=== PATIENT | male | born 1965 | race Caucasian/White ===

== ENCOUNTER 2020-09-08 08:36 | Outpatient (REF) | payer MEDICARE, SELFPAY ==
--- NOTE | 2020-09-08 | US_ITS ---
EXAMINATION: US RETROPERITONEAL COMPLETE (RENAL) CLINICAL INFORMATION: Neurogenic bladder. COMPARISON: CTA abdomen and pelvis 11/12/2019. Renal ultrasound 08/19/2018 and 08/20/2017. TECHNIQUE: Real-time imaging of the kidneys and bladder. FINDINGS: RIGHT KIDNEY: 13.4 x 4.7 x 6.5 cm (SAG x AP x TRV). The kidney is normal in size, contour, and echogenicity. Renal cortical thickness is normal. No calculi or focal parenchymal lesions. No hydronephrosis. LEFT KIDNEY: 13.6 x 5.3 x 6.0 cm (SAG x AP x TRV). The kidney is normal in size, contour, and echogenicity. Renal cortical thickness is normal. No calculi or focal parenchymal lesions. No hydronephrosis. BLADDER: Well distended. The bladder wall may be slightly trabeculated. No stone or mass is seen.. Bilateral ureteral jets are demonstrated. Prevoid bladder volume is 551 mL. Post void bladder volume was not obtained. ADDITIONAL FINDINGS: The prostate gland is normal in size. The prostate gland measures 3.7 x 3.1 x 3.1 cm, volume 18 mL. US/US retroperitoneal comp IMPRESSION: Normal renal ultrasound. Slightly trabeculated bladder wall. Postvoid bladder residual not obtained.
== END 2020-09-08 08:37 | disposition home or self-care (01) ==
LOC: HO.HMGCX 08:36
PROVIDERS: PCP Internal Medicine; Visit Provider Urology
DX: N31.9 Neuromuscular dysfunction of bladder, unspecified (principal)
CPT/HCPCS: 76770

== ENCOUNTER → 2020-12-28 13:12 | Outpatient (BNVA) | payer MEDICARE, SELFPAY | PROVIDERS: Visit Provider Urology | DX: Z13.89 Encounter for screening for other disorder (principal) | CPT/HCPCS: Q3014 ==

== ENCOUNTER 2021-08-20 23:57 | Emergency (ER) | payer MEDICARE, SELFPAY ==
--- NOTE | ~2021-08-20 | XR_ITS ---
EXAMINATION: XR SHOULDER, RIGHT CLINICAL INFORMATION: Fall. EtOH. COMPARISON: 03/08/2012 TECHNIQUE: Two views of the right shoulder. XR/XR shoulder RT min 2V FINDINGS/IMPRESSION: * Acute displaced fracture of the mid clavicular diaphysis with 2 shaft-widths inferior displacement of the distal fracture fragment with respect to the proximal fragment. * Plate and screws redemonstrated along the lateral aspect of the proximal humerus. Healed fracture deformity involving the surgical neck of humerus. * No dislocation. * Acromioclavicular joint unremarkable. * Soft tissues unremarkable.
--- NOTE | ~2021-08-20 | CT_ITS ---
EXAMINATION: CT HEAD WITHOUT CONTRAST CT CERVICAL SPINE WITHOUT CONTRAST CLINICAL INFORMATION: Fall. EtOH. COMPARISON: None. TECHNIQUE: Multidetector CT imaging of the head and cervical spine was performed without the use of intravenous contrast. Multiplanar reformats are reviewed. This CT examination was performed using dose optimization techniques as appropriate, variously including the following: *Automated exposure control *Adjustment of mA and/or kV according to patient size (this includes techniques or standardized protocols for targeted exams where dose is matched to indication/reason for exam; i.e. extremities or head) *Use of iterative reconstruction technique DLP: 1307 mGy-cm. FINDINGS: There is no evidence of acute intracranial hemorrhage or territorial infarction. No abnormal mass effect or midline shift is seen. Poe to white matter differentiation is well preserved. No extra-axial fluid collections are identified. The ventricles are normal in size. 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 No additional small chronic infarct involves the genu of the corpus callosum. Mild background chronic white matter small vessel ischemic changes. Pipeline embolization device within the right cavernous carotid artery extending into the M1 segment with embolization coil mass adjacent. Cavernous carotid calcifications. The osseous structures and soft tissues are normal. The mastoid air cells and visualized portions of the paranasal sinuses are well-aerated. Atlantooccipital alignment is maintained. The vertebral bodies and posterior elements align normally. No acute fracture or subluxation. Vertebral body heights are maintained. Small endplate osteophytes present at C4-C5, C5-C6 and C6-C7. The cervicomedullary junction and spinal cord are grossly unremarkable. The paraspinal soft tissues are unremarkable. The imaged lung apices are clear CT/CT cervical spine wo con IMPRESSION: No acute intracranial pathology. No cervical spine fracture or malalignment.
[2021-08-21 00:20] VITALS: BP 118/79; BP 160/90; PULSE 74; PULSE 75; RESP 17; TEMP 36.6; O2SAT 95; O2SAT 98; BMI 30.8
[2021-08-21 01:48] VITALS: BP 115/78; PULSE 75; RESP 16; TEMP 36.8; O2SAT 94
--- NOTE | 2021-08-21 03:18 | ED_ITS ---
HPI - Alcohol General Chief Complaint: Fall Stated Complaint: r shoulder pain S/P fall Time Seen by Provider: 08/21/21 02:39 Source: patient and EMS Mode of arrival: EMS Limitations: no limitations History of Present Illness HPI narrative: Patient comes to the emergency room complaining alcohol intoxication and a fall. Patient states that he does not remember much. Patient admits to drinking alcohol. Patient complaining of right shoulder pain. Denies headache, no neck pain. Related Data Home Medications Medication Instructions Recorded Confirmed bupropion HCl 150 mg 24 hr tablet, 150 mg PO QAM 12/28/20 extended release dextroamphetamine-amphetamine 30 1 tab PO BID 12/28/20 mg tablet dextroamphetamine-amphetamine ER 1 cap PO QAM 12/28/20 30 mg 24hr capsule,extend release hydrochlorothiazide 25 mg tablet 25 mg PO DAILY 12/28/20 lamotrigine 150 mg tablet 300 mg PO BEDTIME 12/28/20 lorazepam 1 mg tablet 1 mg PO BID PRN 12/28/20 metoprolol tartrate 50 mg tablet 50 mg PO BID 12/28/20 naproxen 500 mg tablet 500 mg PO BID 12/28/20 quetiapine 50 mg tablet 50 mg PO BEDTIME 12/28/20 Previous Rx's Medication Instructions Recorded trimethoprim 100 mg tablet 100 mg PO DAILY 90 Days #90 tab 12/28/20 Allergies Allergy/AdvReac Type Severity Reaction Status Date / Time No Known Allergies Allergy Verified 12/28/20 13:13 lisinopril AdvReac Unknown cough Verified 12/28/20 13:13 Review of Systems Review of Systems: Constitutional : No Weight loss, No Fever, No Chills, No Night Sweats, No Fatigue, No Malaise ENT/Mouth : No Hearing loss, No Ear Pain, No Nasal Congestion, No Sinus Pain, No Hoarseness, No sore throat, No Rhinorrhea, No Swallowing Difficulty Eyes: No Eye Pain, No Swelling, No Redness, No Foreign Body, No Discharge, No Vision Changes Cardiovascular : No Chest Pain, No SOB, No Dyspnea on Exertion, No Orthopnea, No Edema, No Palpitations Respiratory : No Cough, No Sputum, No Wheezing, No Smoke Exposure, No Dyspnea Gastrointestinal : No Nausea, No Vomiting, No Diarrhea, No Constipation, No abdominal Pain, No Hematochezia, No Melena Genitourinary : no irregular bleeding, No Dysuria, No Urinary Frequency, No Hematuria, No Urinary Incontinence, No Urgency, No Flank Pain, No Urinary Flow Changes, No Hesitancy Musculoskeletal : Lining of right shoulder pain, No Myalgias, No Joint Swelling Skin : No Skin Lesions, No rash Neuro : No Weakness, No Numbness, No Paresthesias, No Loss of Consciousness, No Dizziness, No Headache Psych : No Anxiety/Panic, No Depression, No SI/HI/AH/VH, No Social Issues, Heme/Lymph: No Bruising, No Bleeding,No Lymphadenopathy Endocrine : No Polyuria, No Polydipsia, No Temperature Intolerance [facility] Past Medical History Medical History Anxiety Brain aneurysm Dyslipidemia Elevated liver enzymes Epididymitis Essential hypertension GERD (gastroesophageal reflux disease) Intracranial aneurysm MVP (mitral valve prolapse) Neurogenic bladder Retention of urine Surgical History H/O brain surgery History of knee surgery History of vasectomy Social History Social History (Updated 12/28/20 @ 13:16 by Fransisca Ray [facility]) Advance Directives: No Advance Directives Information Provided: No Physical Exam Vital Signs: Vital Signs: Last Vital Signs Temp 97.9 F 08/21/21 04:37 Pulse 75 08/21/21 04:37 Resp 20 08/21/21 04:37 BP 114/79 08/21/21 04:37 Pulse Ox 95 08/21/21 04:37 BMI result Body Mass Index 30.8 Const: Other: Appearance: Alert. Oriented X3. No acute distress. Seems intoxicated, calm, cooperative, answering questions Eyes: Pupils equal, round and reactive to light. ENT: Pharynx normal. Dry oral mucosa Neck: On C-spine precautions. No cervical pain on palpation, no palpable step-offs CVS: Normal heart rate and rhythm. Pulses normal. Normal S1 and S2 Respiratory: No respiratory distress. Breath sounds normal. No Wheezing. No rales Abdomen: Soft and nontender. No rigidity. No distention. Skin: Skin warm and dry. Normal skin color. Normal skin turgor. Extremities: No lower extremity edema. Pain to palpation over the anterior aspect of the right shoulder Neuro: Oriented X 3. No motor deficit. No sensory deficit. Moving all extermities. No slurred speech. Course Course Course Narrative: Patient requested pain medication for his headache. Patient was given Tylenol. Patient became very belligerent. Patient wanted to leave against medical advice. A staff was trying to keep him from leaving. The results of the x-rays returned in the meantime. Patient has an acute displaced fracture of the mid clavicular diaphysis. Stronger pain medication was offered, patient became belligerent and decided to leave against medical advice. Patient stated that he does not want treatment, does not want a sling, pt declined an orthopedics referral. Patient was able to walk steadily. We tried to convince patient to stay, but patient eloped Discharge Plan Discharge Clinical Impression: Alcohol abuse, Clavicle fracture Patient Disposition: Elopement Prescriptions: No Action trimethoprim 100 mg tablet 100 mg PO DAILY 90 Days Qty: 90 RF: 3 Discharge Date/Time: 08/21/21 04:59
[2021-08-21 04:37] VITALS: BP 114/79; PULSE 75; RESP 20; TEMP 36.6; O2SAT 95
--- NOTE | 2021-08-21 04:51 | PC.NURSE ---
at bedside discussing imaging results with pt. pt aware that he has clavicular fracture and is adamantly refusing treatment and telling staff to fuck off. ill go to [facility] pt took off his own C-collar. pt continuing to scream your hospital sucks and is still refusing to stay or cooperate with staff. pt now stating that he will [place] [facility] [place] to get his own pain meds off the street . pt ambulated with steady gait in front of staff and MD. pt still refusing treatment. charge nurse aware.
--- NOTE | 2021-08-21 04:56 | PC.NURSE ---
pt was offered Tylenol for discomfort, pt refused and became verbally aggressive with staff, pt began swearing and yelling stating Fuck you, im going to [facility] , pt also stated im going down to the [place] where i can get some real pain meds
== END 2021-08-21 04:59 | disposition left against medical advice (07) ==
LOC: HO.ED 08-21 03:47
PROVIDERS: Emergency Provider Emergency Medicine
DX: S42.001A Fracture of unspecified part of right clavicle, initial encounter for closed fracture (principal); R51.9 Headache, unspecified; I10 Essential (primary) hypertension; F10.10 Alcohol abuse, uncomplicated; W19.XXXA Unspecified fall, initial encounter; Y93.9 Activity, unspecified; Y92.9 Unspecified place or not applicable; Y99.9 Unspecified external cause status
CPT/HCPCS: 70450; 72125; 73030; 99283; 99284

== ENCOUNTER 2021-12-29 14:52 | Outpatient (REF) | payer MEDICARE, SELFPAY ==
[2021-12-29 17:03] LABS: Prostate Specific Antigen 4.42 ng/mL (<0.05-4.0)
== END 2021-12-29 14:53 | disposition home or self-care (01) ==
LOC: HO.HMGCLDS 14:52
PROVIDERS: Visit Provider Urology
DX: Z12.5 Encounter for screening for malignant neoplasm of prostate (principal); N40.1 Benign prostatic hyperplasia with lower urinary tract symptoms; N13.8 Other obstructive and reflux uropathy
CPT/HCPCS: 36415; 84153

== ENCOUNTER → 2022-03-08 12:58 | Outpatient (BNVA) | payer MEDICARE, SELFPAY | PROVIDERS: PCP Internal Medicine; Visit Provider Urology | DX: N31.9 Neuromuscular dysfunction of bladder, unspecified (principal) | CPT/HCPCS: 51798; 99212 ==

== ENCOUNTER → 2022-09-08 12:59 | Outpatient (BNVA) | payer MEDICARE, SELFPAY | PROVIDERS: PCP Internal Medicine; Visit Provider Urology | DX: N31.9 Neuromuscular dysfunction of bladder, unspecified (principal) | CPT/HCPCS: Q3014 ==

== ENCOUNTER 2023-03-06 23:04 | Emergency (ER) | payer MEDICARE, SELFPAY ==
--- NOTE | ~2023-03-06 | CT_ITS ---
EXAMINATION: CT ABDOMEN AND PELVIS WITHOUT CONTRAST CLINICAL INFORMATION: Right flank/rib pain COMPARISON: None available. TECHNIQUE: Multidetector volumetric imaging was performed from the superior aspect of the liver through the pubic symphysis. Sagittal and coronal reformatted images were obtained on the technologist's workstation. This CT examination was performed using dose optimization techniques as appropriate, variously including the following: *Automated exposure control *Adjustment of mA and/or kV according to patient size (this includes techniques or standardized protocols for targeted exams where dose is matched to indication/reason for exam; i.e. extremities or head) *Use of iterative reconstruction technique DLP: 611 mGy-cm FINDINGS: LUNG BASES: The lung bases are unremarkable. The heart size is normal. LIVER, GALLBLADDER, AND BILIARY TREE: The liver is normal in size, shape, and scattered hypoattenuation. No focal hepatic lesion or biliary ductal dilatation is present. The gallbladder has been surgically removed. PANCREAS: Unremarkable. SPLEEN: The spleen is normal size with punctate calcifications. ADRENAL GLANDS: Unremarkable. KIDNEYS AND URETERS: The kidneys are normal in size, shape, and attenuation. There are punctate nonobstructive calculi without caliectasis or hydronephrosis. A 5 mm lower pole left kidney and 2 mm nonobstructive radiopaque calculi lower pole right kidney. No perinephric stranding seen. BLADDER: The bladder is irregular nondistended with mild anterior and superior bladder wall thickening as much as 6 mm along the superior border. This is best visualized on sagittal image 55/6 GASTROINTESTINAL TRACT: There is scattered stool and gas seen throughout the colon without any significant distention. The small bowel loops are normal caliber. Appendix is normal caliber. The stomach is prominent with recently ingested food. ABDOMINAL WALL: No significant hernia is appreciated. LYMPH NODES: There are numerous retroperitoneal lymph nodes largest left para-aortic lymph node measures 1.3 cm on axial image 42/3. . VASCULAR: Mild aneurysmal dilatation of distal abdominal aorta is seen measuring 2.0 cm in AP and 2.8 cm wide on axial slice 50/3. PELVIC VISCERA: Unremarkable. OSSEOUS STRUCTURES: There is Schmorl's node superior endplate L1 vertebra. No aggressive lytic or sclerotic process seen.. CT/CT abdomen pelvis wo IV con IMPRESSION: Punctate bilateral renal calculi, nonobstructive. Irregular bladder shape with mild anterior and superior bladder wall thickening likely neurogenic bladder. Mild constipation with most of stool in the right colon. However the appendix is normal caliber. Fleischner guidelines were followed.
[2023-03-06 23:09] VITALS: BP 125/90; BP 154/92; PULSE 85; PULSE 91; RESP 18; TEMP 36.8; O2SAT 95; O2SAT 96; BMI 28.7
[2023-03-07 00:21] LABS: MANUAL DIFF FLAG NO
[2023-03-07 00:27] LABS: Basophils Absolute Auto 0.1 X10*3/uL (0.0-0.2); Basophils Percent Auto 0.6 % (0-2); Eosinophils Absolute Auto 0.2 X10*3/uL (0.0-0.4); Eosinophils Percent Auto 2.3 % (0-4); Hematocrit 40.3 % (42.0-52.0); Hemoglobin 13.6 g/dl (14.0-18.0); Imm Gran Abs Auto 0.02 X10*3/uL (0.00-0.03); Imm Gran Pct Auto 0.3 % (0.0-0.4); Lymphocytes Absolute Auto 3.3 X10*3/uL (1.2-4.9); Lymphocytes Percent Auto 40.8 % (20-40); Mean Corpuscular HGB Conc 33.7 g/dl (31.0-36.0); Mean Corpuscular Hemoglobin 31.8 pg (27.0-33.0); Mean Corpuscular Volume 94.2 fL (80.0-98.0); Mean Platelet Volume 10.1 fL (9.4-12.4); Monocytes Absolute Auto 0.6 X10*3/uL (0.1-1.2); Monocytes Percent Auto 7.9 % (2-11); Neutrophils Absolute Auto 3.9 x10*3/uL (2.0-8.3); Neutrophils Percent Auto 48.1 % (45-73); Platelet Count 145 X10*3/uL (160-400); Red Blood Count 4.28 X10*6/uL (4.60-5.80); Red Cell Distribution Width 12.9 % (11.0-16.0)
[2023-03-07 00:34] LABS: Anion Gap 18 (12-20); Blood Urea Nitrogen 15 mg/dL (9-16); Calcium 10.1 mg/dL (8.4-10.2); Carbon Dioxide 24 mmol/L (22-29); Chloride 105 mmol/L (96-108); Creatinine Clr Calc Pharmacy 92.6; Estimated Glomerular Filt Rate > 60; Glucose Random 98 mg/dL (60-115); Potassium 3.8 mmol/L (3.3-5.1); Sodium 143 mmol/L (135-145)
--- OUTSIDE RECORDS SUMMARY | 2023-03-07 01:01 | XMS_ITS | Continuity of Care Document ---
Author Name Unknown Organization [facility] ter Address [address] [place] [id number] Care Team Providers Care Chemist Biological Name Role Phone Salas Peralta MD Primary Care Physician [place] [facility] [place]): 08/05/21 - 08/05/[address] [address]- Discharge Disposition: A-D/C Walkout Attending Physician: Not on Staff, Attending MD Admitting Physician: Not on Staff, Admitting MD Referring Physician: Not on Staff, Referring MD Allergies, Adverse Reactions, Alerts Substance Reaction Severity Status lisinopril Active Medications Adderall 30 mg oral tablet 1 tablet = 30 mg, By Mouth, 2 times a day, 0 Refills, Maintenance, 04/30/17 5:23:01, Tablet Start Date: 04/30/17 Status: Ordered Aspirin 0 Refills, Maintenance Start Date: 05/26/11 Status: Ordered Ativan 1 mg oral tablet 1 tablet = 1 mg, By Mouth, 2 times a day, PRN as needed for anxiety, 0 Refills, Maintenance, 04/30/17 5:23:30, Tablet Start Date: 04/30/17 Status: Ordered hydrochlorothiazide 25 mg oral tablet 25 mg, 1, tablet, By Mouth, Daily, # 90 tablet, Refills 0, Maintenance, 10/01/20 6:47:00 EST, Partial fill upon patient request if the prescription is for a schedule II opioid drug. Start Date: 10/01/20 Status: Ordered lamotrigine 200 mg oral tablet 1 tablet = 200 mg, By Mouth, 2 times a day, # 180 tablet, 0 Refills, Maintenance, 04/30/17 5:22:50,Tablet Start Date: 04/30/17 Status: Ordered losartan 25 mg oral tablet 25 mg, 1, tablet, By Mouth, Daily, # 30 tablet, Refills 0, Maintenance, 10/01/20 6:47:00 EST, Partial fill upon patient request if the prescription is for a schedule II opioid drug. Start Date: 10/01/20 Status: Ordered metoprolol 50 mg oral tablet 50 mg, 1, tablet, By Mouth, 2 times a day, # 180 tablet, Refills 0, Maintenance, 10/01/20 6:46:00 EST, Partial fill upon patient request if the prescription is for a schedule II opioid drug. Start Date: 10/01/20 Status: Ordered Independence-3 oral capsule 0 Refills, Maintenance, 10/01/20 6:52:00 EST, Partial fill upon patient request if the prescriptionis for a schedule II opioid drug. Start Date: 10/01/20 Status: Ordered Omeprazole By Mouth, Daily, 0 Refills, Maintenance, 10/01/20 6:52:00 EST, Partial fill upon patient request ifthe prescription is for a schedule II opioid drug. Start Date: 10/01/20 Status: Ordered QUEtiapine 100 mg oral tablet 100 mg, 1, tablet, By Mouth, 3 times a day, # 270 tablet, Refills 0, Maintenance, 04/30/17 5:23:48 Start Date: 04/30/17 Status: Ordered Problem List Condition Effective Dates Status Health Status Inform ant Obese class I(Confirmed) Active Results Radiology Reports * Exam Date Time Procedure Performing Provider Status 08/05/21 2:39 PM Chest 2 Views Frontal and Lat Matilde Hunter; Auth (Verified) Notes: (Chest 2 Views Frontal and Lat) Reason For Exam: Chest Pain;Other: RESULT: Chest 2 Views Frontal and Lat Chest 2 Views Frontal and Lat INDICATION/CLINICAL QUESTION: Dizziness. Lightheadedness. Shortness of breath. Malaise. TECHNIQUE: Frontal and lateral views of the chest. COMPARISON: None.. FINDINGS: LINES AND TUBES: None. LUNGS AND PLEURA: RIGHT CHEST: The right lung is clear and there is no right effusion. LEFT CHEST: The left lung is clear and there is no left effusion. HEART, MEDIASTINUM AND DENY: The heart is of normal size. The mediastinum and deny are normal. BONES AND SOFT TISSUES: No acute bony abnormality. IMPRESSION: 1. No active disease in chest. WSN: [id number] Ordering Physician: Светлана Collazo Dictated By: Dejon Helms MD Dictated Date/Time: 08/05/21 2:48 pm Reviewed By: Dejon Helms MD Signed By: Dejon Helms MD Signed Date/Time: 08/05/21 2:48 pm Transcribed By: TINO Transcribed Date/Time: 08/05/21 2:47 pm Vital Signs Most recent to oldest [Reference Range]: 1 Height 178 cm (08/05/21 12:42 PM) Weight 100 kg (08/05/21 12:42 PM) Oxygen Saturation [94-100 %] 97 % (08/05/21 12:42 PM) Pulse Rate [55-90 bpm] 100 bpm *H* (08/05/21 12:42 PM) Body Mass Index [18.5-24.99] 31.56 *>HHI* (08/05/21 12:42 PM) Blood Pressure [90-138/55-84 mm Hg] 148/ 96mm Hg *H* (08/05/21 12:42 PM) Respiratory Rate [16-30 br/min] 20 br/mi n (08/05/21 12:42 PM) Temperature [96.8-100.4 DegF] 99.9 DegF (08/05/21 12:42 PM) Mode of Delivery (Oxygen) Room air (08/05/21 12:42 PM) Blood pressure sites Arm, left (08/05/21 12:42 PM) Temperature Route Oral (08/05/21 12:42 PM) Dry Weight 100 kg (08/05/21 12:42 PM)
--- OUTSIDE RECORDS SUMMARY | 2023-03-07 01:01 | XMS_ITS | Continuity of Care Document ---
Author Name Unknown Organization [facility] ter Address [address] [place] [id number] Care Team Providers Care Oil Inspector Name Role Phone Salas Peralta MD Primary Care Physician [place] [facility] [place] 09/13/[address] [id number] Encounter Diagnosis Right shoulder pain(Final) - 09/11/21 Discharge Disposition: A-D/C AMA Attending Physician: Silvia Kimble MD Admitting Physician: Charlie Salazar MD Referring Physician: Not on Staff, Referring MD Allergies, Adverse Reactions, Alerts Substance Reaction Severity Status lisinopril Active Medications Adderall 30 mg oral tablet 1 tablet = 30 mg, By Mouth, 2 times a day, 0 Refills, Maintenance, 04/30/17 5:23:01, Tablet Start Date: 04/30/17 Status: Ordered Aspirin = 325 mg, By Mouth, Daily, 0 Refills, Maintenance, 05/26/11 12:03:58 EDT Start Date: 05/26/11 Status: Ordered Ativan 1 mg oral tablet 1 tablet = 1 mg, By Mouth, 2 times a day, PRN as needed for anxiety, 0 Refills, Maintenance, 04/30/17 5:23:30, Tablet Start Date: 04/30/17 Status: Ordered buPROPion 150 mg/24 hours (XL) oral tablet, extended release 1 tablet = 150 mg, By Mouth, Daily, # 30 tablet, 0 Refills, Maintenance, 09/11/21 16:43:00 EST, ER Tablet, Partial fill upon patient request if the prescription is for a schedule II opioid drug. Start Date: 09/11/21 Status: Ordered hydrochlorothiazide 25 mg oral tablet 25 mg, 1, tablet, By Mouth, Daily, # 90 tablet, Refills 0, Maintenance, 10/01/20 6:47:00 EST, Partial fill upon patient request if the prescription is for a schedule II opioid drug. Start Date: 10/01/20 Status: Ordered lamotrigine 150 mg oral tablet 2 tablet = 300 mg, By Mouth, Daily at bedtime, # 180 tablet, 0 Refills, Maintenance, 09/11/21 16:42:00 EST, Tablet, Partial fill upon patient request if the prescription is for a schedule II opioid drug. Start Date: 09/11/21 Status: Ordered LORazepam 1 mg oral tablet 1 tablet = 1 mg, By Mouth, 2 times a day, PRN as needed for anxiety, 0 Refills, Maintenance, 09/11/21 16:43:00 EST, Tablet, Partial fill upon patient request if the prescription is for a schedule II opioid drug. Start Date: 09/11/21 Status: Ordered losartan 25 mg oral tablet [...] metoprolol 50 mg oral tablet 50 mg, Tablet, By Mouth, 09/12/21 21:00:00 EST Start Date: 09/12/21 Stop Date: 09/12/21 Status: Completed [place]-3 oral capsule 0 Refills, Maintenance, 10/01/20 6:52:00 EST, Partial fill upon patient request if the prescriptionis for a schedule II opioid drug. Start Date: 10/01/20 Status: Ordered Omeprazole By Mouth, Daily, 0 Refills, Maintenance, 10/01/20 6:52:00 EST, Partial fill upon patient request ifthe prescription is for a schedule II opioid drug. Start Date: 10/01/20 Status: Ordered oxyCODONE 5 mg oral tablet 5 mg, Tablet, By Mouth, Every 6 hours, PRN for Pain , Severe, Routine, 09/11/21 17:09:00 EST Start Date: 09/11/21 Stop Date: 09/13/21 Status: Discontinued QUEtiapine 50 mg oral tablet 1 tablet = 50 mg, By Mouth, Daily at bedtime, PRN Insomnia, # 30 tablet, 0 Refills, Maintenance, 09/11/21 16:43:00 EST, Tablet, Partial fill upon patient request if the prescription is for a scheduleII opioid drug. Start Date: 09/11/21 Status: Ordered Problem List Condition Effective Dates Status Health Status Inform ant Clavicle fracture(Confirmed) Active Obese class I(Confirmed) Active Results Orders for Microbiology Reports Name Date Urine Culture (URINE CULTURE) 09/11/21 Blood Culture 09/11/21 Blood Culture #2 09/11/21 Microbiology Reports TEST:Urine Culture STATUS:Unauthenticated BODY SITE: SOURCE:URINE COLLECTED DATE/TIME:09/11/21 4:47 PM Urine Culture SPECIMEN DESCRIPTION : URINE SPECIAL REQUESTS : NONE CULTURE : >100,000 COL/ML GRAM NEGATIVE RODS REPORT STATUS : PRELIMINARY REPORT TEST:Blood Culture STATUS:Unauthenticated BODY SITE: SOURCE:Blood COLLECTED DATE/TIME:09/11/21 8:35 AM Blood Culture SPECIMEN DESCRIPTION : BLOOD RIGHT ARM SPECIAL REQUESTS : NONE CULTURE : NO GROWTH AFTER 48 HOURS REPORT STATUS : PRELIMINARY REPORT TEST:Blood Culture, Second Order STATUS:Unauthenticated BODY SITE: SOURCE:Blood COLLECTED DATE/TIME:09/11/21 8:35 AM Blood Culture, Second Order SPECIMEN DESCRIPTION : BLOOD LEFT HAND SPECIAL REQUESTS : CRITICAL VALUE CALLED AND VERIFIED BY READBACK FOR: [place] [id number] on s2 at 1130 on 09/13/21 tech 152. CULTURE : GRAM NEGATIVE RODS Escherichia coli was identified by multi-plex PCR REPORT STATUS : PRELIMINARY REPORT Radiology Reports * Exam Date Time Procedure Performing Provider Status 09/11/21 8:25 AM Clavicle Complete Right Matthew Segura in; Auth (Verified) Notes: (Clavicle Complete Right) Reason For Exam: with Pain;Trauma RESULT: Clavicle Complete Right Clavicle Complete Right Hx of Present Illness: Pt from home states he woke up this morning w severe pain in his right shoulder, recently fractured his R clavicle in a fall, is not sure if he was supposed to wear a sling. Daily etoh user states last drink last night approx 2300. Pt reports n v this am; Reason: Trauma; withPain; Clinical Question(s): Fracture COMPARISON: None. FINDINGS: There is a displaced mid clavicle fracture. Intact AC joint. Normal surrounding soft tissues. IMPRESSION: Displaced mid clavicle fracture. WSN: [id number] Ordering Physician: Rita Fleming Dictated By: Miracle Hughes MD Dictated Date/Time: 09/11/21 9:00 am Reviewed By: Miracle Hughes MD Signed By: Miracle Hughes MD Signed Date/Time: 09/11/21 9:00 am Transcribed By: TINO Transcribed Date/Time: 09/11/21 8:59 am * Exam Date Time Procedure Performing Provider Status 09/11/21 8:25 AM Chest 2 Views Frontal and Lat Daquan Segura; Auth (Verified) Notes: (Chest 2 Views Frontal and Lat) Reason For Exam: Trauma RESULT: Chest 2 Views Frontal and Lat Chest 2 Views Frontal and Lat Hx of Present Illness: Pt from home states he woke up this morning w severe pain in his right shoulder, recently fractured his R clavicle in a fall, is not sure if he was supposed to wear a sling. Daily etoh user states last drink last night approx 2300. Pt reports n v this am; Reason: Trauma; Clinical Question(s): Fracture COMPARISON: 08/05/2021. FINDINGS: LINES AND TUBES: None. LUNGS AND PLEURA: Clear lungs. Normal pulmonary vascularity. No pleural effusion. No pneumothorax. HEART, MEDIASTINUM AND DENISE: Heart is normal in size. Normal upper mediastinal and hilar contour. BONES AND SOFT TISSUES: No acute abnormality. IMPRESSION: No acute abnormality. WSN: [id number] Ordering Physician: Rita Fleming Dictated By: Miracle Hughes MD Dictated Date/Time: 09/11/21 8:53 am Reviewed By: Miracle Hughes MD Signed By: Miracle Hughes MD Signed Date/Time: 09/11/21 8:53 am Transcribed By: TINO Transcribed Date/Time: 09/11/21 8:52 am Vital Signs Most recent to oldest [Reference Range]: 1 2 3 Height 177 cm (09/12/21 11:17 PM) 177 cm (09/12/21 6:30 AM) 177 cm (09/11/21 11:31 PM) Weight 97 kg (09/11/21 6:33 PM) Oxygen Saturation [94-100 %] 95 % (09/12/21 11:17 PM) 99 % (09/12/21 4:00 PM) 99 % (09/12/21 11:00 AM) Pulse Rate [55-90 bpm] 79 bpm (09/12/21 11:17 PM) 94 bpm *H* (09/12/21 7:43 PM) 82 bpm (09/12/21 4:00 PM) Body Mass Index [18.5-24.99] 30.96 *>HHI* (09/11/21 6:33 PM) Blood Pressure [90-138/55-84 mm Hg] 130/85mm Hg (09/12/21 11:17 PM) 154/91mm Hg *H* (09/12/21 7:43 PM) 132/87mm Hg (09/12/21 4:00 PM) Respiratory Rate [16-30 br/min] 19 br/min (09/12/21 11:17 PM) 16 br/min (09/12/21 10:09 PM) 18 br/min (09/12/21 4:46 PM) Temperature [96.8-100.4 DegF] 98.6 DegF (09/12/21 11:17 PM) 98.6 DegF (09/12/21 4:00 PM) 98.2 DegF (09/12/21 11:00 AM) Liters per Minute 2 L/min (09/11/21 11:31 PM) Mode of Delivery (Oxygen) Room air (09/12/21 11:17 PM) Room air (09/12/21 4:00 PM) Room air (09/12/21 11:00 AM) Blood pressure sites Arm, right (09/12/21 11:17 PM) Arm, left (09/12/21 4:00 PM) Arm, left (09/12/21 11:00 AM) Temperature Route Oral (09/12/21 11:17 PM) Oral (09/12/21 4:00 PM) Oral (09/12/21 11:00 AM) Dry Weight 97 kg (09/11/21 6:33 PM)
[2023-03-07 01:25] LABS: Lipase 96 U/L (8-78)
--- NOTE | 2023-03-07 01:35 | ED_ITS ---
HPI - Male Genitourinary General Chief complaint: Urogenital-Male Stated complaint: ABD PAIN Time Seen by Provider: 03/07/23 01:33 Source: patient Mode of arrival: ambulatory Limitations: no limitations History of Present Illness HPI Narrative: Patient with history of neuro genic bladder self catheterized for last 4 years really get UTI apparently fell about 2 weeks ago had right rib broken comes here for pain in the right lower rib, right flank for last 2- 3 days increases on palpation and deep breaths no cough no shortness of breath no fever or chills no abdominal pain no shortness of breath Related Data Home Medications Medication Instructions Recorded Confirmed bupropion HCl 150 mg 24 hr tablet, 150 mg PO QAM 12/28/20 09/08/22 extended release dextroamphetamine-amphetamine 30 1 tab PO BID 12/28/20 09/08/22 mg tablet dextroamphetamine-amphetamine ER 1 cap PO QAM 12/28/20 09/08/22 30 mg 24hr capsule,extend release hydrochlorothiazide 25 mg tablet 25 mg PO DAILY 12/28/20 09/08/22 lamotrigine 150 mg tablet 300 mg PO BEDTIME 12/28/20 09/08/22 lorazepam 1 mg tablet 1 mg PO BID PRN anxiety 12/28/20 09/08/22 metoprolol tartrate 50 mg tablet 50 mg PO BID 12/28/20 09/08/22 naproxen 500 mg tablet 500 mg PO BID 12/28/20 09/08/22 quetiapine 50 mg tablet 50 mg PO BEDTIME 12/28/20 09/08/22 ezetimibe 10 mg tablet 10 mg PO DAILY 03/08/22 09/08/22 naltrexone 50 mg tablet 50 mg PO BEDTIME 09/08/22 09/08/22 Previous Rx's Medication Instructions Recorded trimethoprim 100 mg tablet 100 mg PO DAILY 90 days #90 tabs 09/08/22 cyclobenzaprine 10 mg tablet 10 mg PO Q8H #20 tabs 03/07/23 diclofenac sodium 50 mg 50 mg PO Q12H PRN pain #20 tabs 03/07/23 tablet,delayed release Allergies Allergy/AdvReac Type Severity Reaction Status Date / Time No Known Allergies Allergy Verified 09/08/22 13:00 lisinopril AdvReac Unknown cough Verified 09/08/22 13:00 Review of Systems Review of Systems: Yes all other systems are reviewed and are negative [facility] Past Medical History Medical History Anxiety Brain aneurysm Dyslipidemia Elevated liver enzymes Epididymitis Essential hypertension GERD (gastroesophageal reflux disease) Intracranial aneurysm MVP (mitral valve prolapse) Neurogenic bladder Retention of urine Surgical History H/O brain surgery History of knee surgery History of vasectomy Social History Social History Advance Directives: No Advance Directives Information Provided: Yes Physical Exam Vital Signs: Vital Signs: Last Vital Signs Temp 98.3 F 03/06/23 23:09 Pulse 76 03/07/23 05:01 Resp 16 03/07/23 05:01 BP 125/90 H 03/06/23 23:09 Pulse Ox 96 03/07/23 05:01 O2 Del Method Room Air 03/07/23 05:01 BMI result Body Mass Index 28.7 Appearance: Alert. Oriented X3. No acute distress. ENT: Pharynx normal. Oral Mucosa moist Neck: Normal inspection. Neck supple. CVS: Normal heart rate and rhythm. Pulses normal. Respiratory: No respiratory distress. Equal air entry bilateral, no wheezing/rales/rhonchi tender right lower rib pain in the lateral aspect Abdomen: Soft and nontender. Bowel sounds are present, no mass palpable, no CVA tenderness Skin: Skin warm and dry. Normal skin color. Normal skin turgor. Extremities: No lower extremity edema. No calf tenderness Neuro: Oriented X 3. Chest: Chest/axillae images: 1. Tender to touch right lower rib slight right flank tenderness no crepitation or deformity Medications Administered Discontinued Medications Generic Name Dose Route Start Last Admin Trade Name Freq PRN Reason Stop Dose Admin Oxycodone HCl 10 mg 03/07/23 02:07 03/07/23 02:21 Oxycodone Hcl Immed Release 5 Mg Tablet PO 03/07/23 02:08 10 mg ONCE ONE Administration Medical Decision Making Medical Decision Making [facility] Narrative: Patient's right lower rib/flank pain will check the urine to rule out UTI/pyelonephritis likely patient musculoskeletal/rib fracture from the previous fall as a cause of pain Lab Data 03/07/23 00:17 06/21/23 00:17 Labs: Lab Results 03/07/23 03/07/23 03/07/23 Range/Units 00:17 00:17 03:27 WBC 8.0 (4.8-10.8) X10*3/uL RBC 4.28 L (4.60-5.80) X10*6/uL Hgb 13.6 L (14.0-18.0) g/dl Hct 40.3 L (42.0-52.0) % MCV 94.2 (80.0-98.0) fL MCH 31.8 (27.0-33.0) pg MCHC 33.7 (31.0-36.0) g/dl RDW 12.9 (11.0-16.0) % Plt Count 145 L (160-400) X10*3/uL MPV 10.1 (9.4-12.4) fL Immature Gran % (Auto) 0.3 (0.0-0.4) % Neut % (Auto) 48.1 (45-73) % Lymph % (Auto) 40.8 H (20-40) % [place] % (Auto) 7.9 (2-11) % Eos % (Auto) 2.3 (0-4) % Baso % (Auto) 0.6 (0-2) % Lymph # (Auto) 3.3 (1.2-4.9) X10*3/uL [place] # (Auto) 0.6 (0.1-1.2) X10*3/uL Eos # (Auto) 0.2 (0.0-0.4) X10*3/uL Baso # (Auto) 0.1 (0.0-0.2) X10*3/uL Abs Immat Gran (auto) 0.02 (0.00-0.03) X10*3/uL Absolute Neuts (auto) 3.9 (2.0-8.3) x10*3/uL Absolute Nucleated RBC 0.000 (0.0-0.012) X10*3/uL Nucleated RBC % (auto) 0.0 (0.0-0.2) /100WBC Sodium 143 (135-145) mmol/L Potassium 3.8 (3.3-5.1) mmol/L Chloride 105 (96-108) mmol/L Carbon Dioxide 24 (22-29) mmol/L Anion Gap 18 (12-20) BUN 15 (9-16) mg/dL Creatinine 1.02 (0.5-1.4) mg/dL Estim Creat Clear Calc 92.6 Estimated GFR > 60 Random Glucose 98 (60-115) mg/dL Calcium 10.1 (8.4-10.2) mg/dL Lipase 96 H (8-78) U/L Urine Color Yellow Urine Appearance Clear Urine pH 6.0 (5.0-9.0) Ur Specific [place] 1.015 (1.005-1.025) Urine Protein Trace (Neg-Trace) mg/dL Urine Glucose (UA) Negative (Negative) mg/dL Urine Ketones Negative (Negative) mg/dL Urine Blood Negative (Negative) Urine Nitrite Negative (Negative) Ur Leukocyte Esterase Trace H (Negative) Urine RBC 0-2 (0-2) /HPF Urine WBC 0-5 (0-5) /HPF Ur Squamous Epith Cells 0-2 (0-2) /HPF Urine Bacteria None Seen (None Seen) Hyaline Casts 0-2 (0-2) /LPF Discharge Plan Discharge Clinical Impression: Musculoskeletal chest pain Patient Disposition: Home, Self-Care Instructions: Chest Wall Pain (ED) Additional Instructions: Likely have chest wall pain from previous rib fractures Currently no rib fracture is seen on the right lower side Pain medication as prescribed Prescriptions: New cyclobenzaprine 10 mg tablet 10 mg PO Q8H Qty: 20 0RF diclofenac sodium 50 mg tablet,delayed release (DR/EC) 50 mg PO Q12H PRN (Reason: pain) Qty: 20 0RF No Action dextroamphetamine-amphetamine 30 mg capsule,extended release 24hr 1 cap PO QAM lorazepam 1 mg tablet 1 mg PO BID PRN (Reason: anxiety) dextroamphetamine-amphetamine 30 mg tablet 1 tab PO BID quetiapine 50 mg tablet 50 mg PO BEDTIME bupropion HCl 150 mg tablet extended release 24 hr 150 mg PO QAM metoprolol tartrate 50 mg tablet 50 mg PO BID lamotrigine 150 mg tablet 300 mg PO BEDTIME naproxen 500 mg tablet 500 mg PO BID hydrochlorothiazide 25 mg tablet 25 mg PO DAILY ezetimibe 10 mg tablet 10 mg PO DAILY naltrexone 50 mg tablet 50 mg PO BEDTIME trimethoprim 100 mg tablet 100 mg PO DAILY 90 Days Qty: 90 1RF Interventions: ED Discharge Assessment Last Done: 03/07/23 05:02 Discharge Date/Time: 03/07/23 05:03
[2023-03-07] MEDS: oxyCODONE HCl Immed Release 5 MG TABLET 10 MG PO (02:21)
[2023-03-07 03:34] LABS: Appearance Urine Clear; Color Urine Yellow; Glucose Urine UA Negative (Negative); Leukocyte Esterase Urine Trace (Negative); Nitrite Urine Negative (Negative); Specific Gravity - Urine 1.015 (1.005-1.025); UMIC TRIGGER UACC YES; Urine Blood Negative (Negative); Urine Ketones Negative (Negative); Urine Protein Trace mg/dL (Neg-Trace)
[2023-03-07 03:45] LABS: Bacteria Urine None Seen (None Seen); Hyaline Casts Urine 0-2 /LPF (0-2); RBC Urine 0-2 /HPF (0-2); Squamous Epithelial Cell Urine 0-2 /HPF (0-2); WBC Urine 0-5 /HPF (0-5)
[2023-03-07 05:01] VITALS: PULSE 76; RESP 16; O2SAT 96
== END 2023-03-07 05:03 | disposition home or self-care (01) ==
PROVIDERS: Emergency Provider Internal Medicine; PCP Nurse Practitioner Primary Care
DX: R07.89 Other chest pain (principal); E78.5 Hyperlipidemia, unspecified; I10 Essential (primary) hypertension; Z79.899 Other long term (current) drug therapy
CPT/HCPCS: 36415; 74176; 80048; 81001; 83690; 85025; 99284

== ENCOUNTER 2023-05-18 13:40 | Outpatient (REF) | payer MEDICARE, SELFPAY ==
--- NOTE | ~2023-05-18 | US_ITS ---
EXAMINATION: US RETROPERITONEAL LIMITED (RENAL ONLY) CLINICAL INFORMATION: Neuromuscular dysfunction of the bladder, unspecified. COMPARISON: CT abdomen and pelvis 03/07/2023. Renal ultrasound 09/08/2020 and 08/19/2018. TECHNIQUE: Real-time imaging of the kidneys. FINDINGS: RIGHT KIDNEY: 13.3 x 4.4 x 5.9 cm (SAG x AP x TRV). The kidney is normal in size, lobulated and echogenicity. Renal cortical thickness is normal. No calculi or focal parenchymal lesions. No hydronephrosis. LEFT KIDNEY: 13.9 x 5.2 x 5.8 cm (SAG x AP x TRV). The kidney is normal in size, contour, and echogenicity. Renal cortical thickness is normal. No calculi or focal parenchymal lesions. No hydronephrosis. US/US renal BI IMPRESSION: Lobulated contour right kidney otherwise appears unremarkable.. Previously CT described punctate nonobstructive calculi in both kidneys are not seen by ultrasound. The left kidney is unremarkable.
== END 2023-05-18 13:41 | disposition home or self-care (01) ==
LOC: HO.HMGCX 13:40
PROVIDERS: PCP Nurse Practitioner Primary Care; Visit Provider Urology
DX: N31.9 Neuromuscular dysfunction of bladder, unspecified (principal)
CPT/HCPCS: 76775

== ENCOUNTER 2023-06-12 10:53 | Outpatient (AMB) | payer MEDICARE, SELFPAY ==
--- NOTE | 2023-06-12 11:01 | A.OFFVIS_ITS ---
Intake Intake Visit Reasons: 6m f/u US(set) Intake Note: Patient is present for follow up neurogenic bladder/ultrasound (imaging 05/18/23) Urology Medication: Trimethoprim Blood Thinner: None PVR: Assistant Director Of Financial Aid Required: No Accompanied by: Self / Same As Patient Allergies No Known Allergies Allergy (Verified 06/12/23 22:51) lisinopril Adverse Reaction (Unknown, Verified 06/12/23 22:51) cough Medication List - Last Reconciled 06/12/23 by BRITTNY Herrera- aspirin 325 mg PO DAILY bupropion HCl 150 mg PO QAM cyclobenzaprine 10 mg PO Q8H dextroamphetamine-amphetamine 30 mg 1 tab PO BID dextroamphetamine-amphetamine 30 mg ER 1 cap PO QAM diclofenac sodium 50 mg PO Q12H PRN ezetimibe 10 mg PO DAILY hydrochlorothiazide 25 mg PO DAILY lamotrigine 300 mg PO BEDTIME lorazepam 1 mg PO BID PRN metformin mg PO metoprolol tartrate 50 mg PO BID naltrexone 50 mg PO BEDTIME naproxen 500 mg PO BID quetiapine 50 mg PO BEDTIME trimethoprim 100 mg PO DAILY 90 days HPI HPI Comments History of Present Illness Details Dillan is a very pleasant male patient of Dr. Lu. He has a past medical history of elevated liver enzymes, dyslipidemia, anxiety, GERD, mitral valve prolapse, hypertension, brain aneurysm, and neurogenic bladder. 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 When asked patient reports to be doing and feeling well. He reports continuing to CIC every 3-4 hours daily. He denies any signs and symptoms of a urinary tract infection. He denies any urinary issues or concerns at this time. When asked he denies hematuria, dysuria, foul smelling urine, changes to urinary stream, flank pain, fever, and or chills. Recent renal imaging results reviewed with the patient today. Bilateral kidneys with no calculi, lesions, and or hydronephrosis noted. Lobulated contour right kidney otherwise appears unremarkable. Previously CT described punctate nonobstructive calculi in both kidneys are not seen by ultrasound. The left kidney is unrem arkable. Discussed obtaining PSA now and again in 1 year. Patient otherwise denies any issues or concerns at this time. GEMA offered; deferred. PSA 01/06 4.4 - borderline but uses catheters Still maintaining CIC 14 [place] using trimethoprim three times per week for supression Will expect catheterization required for the foreseeable future Neurogenic Bladder: They are here for further management for incomplete emptying neurogenic bladder - catheterizing 4-6 times per day, Needs coude and has had no infections and no blood with coude. Will continue. Urinary retention initially found progressive development over time. Cystoscopy results Large bladder capacity, no prostate problems, irritated bladder will trying trimethoprim daily. Imaging results US shows poor bladder emptying - 500cc residual 09/02 - , US shows, no hydronephrosis. - 09/05 ultrasound normal -06/09 ultrasound normal Associated conditions [place] No CAD No CVA No Diabetes No Multiple sclerosis No renal replacement therapy No Spinal injury/surgery No Current management clean intermittent catheterization, 14 Fr coude - catheterization will be on going for the foreseeable future. Permanent neurogenic bladder. - continue with trimethoprim - had bleeding with 16 fR straight. Therapeutic plan continue with medication, clean intermittent catheterization increased from 3 times per day to 4 times per day.. Accompanied by girlfriend [facility] Medical History Elevated liver enzymes Dyslipidemia Anxiety GERD (gastroesophageal reflux disease) Retention of urine Intracranial aneurysm MVP (mitral valve prolapse) Essential hypertension Brain aneurysm Epididymitis Neurogenic bladder Surgical History History of vasectomy H/O brain surgery History of knee surgery Review of Systems Const Reports no additional complaints Eyes Reports no additional complaints ENT Reports no additional complaints Card Reports as per HPI Resp Reports no additional complaints GI Reports as per HPI Reports as per HPI Musc Reports no additional complaints Neuro Reports as per HPI Psych Reports as per HPI Endo Reports no additional complaints [place]/Lymph Reports no additional complaints Aller/Immun Reports no additional complaints Physical Exam Const General: cooperative, healthy appearing, comfortable, no acute distress, well developed, alert and awake Orientation/consciousness: patient oriented x3 Limitations: no limitations HEENT Head: Yes normal to inspection, Yes normocephalic and Yes atraumatic Ears: hearing grossly normal bilaterally Eyes General: appearance normal, both eyes and all related structures Neck Neck: Yes normal visual inspection and Yes trachea midline Chest Chest palpation & inspection: normal inspection of the chest Resp Effort & Inspection: normal respiratory effort and able to speak in complete sentences Cardio Rate: regular rate GI Inspection: Yes normal to inspection General: Yes no CVA tenderness Back/Spine/Pelvis Back: no CVA tenderness Skin General skin exam: no rashes or lesions noted Neuro General: patient oriented x3 Extrem General: Yes normal to inspection Psych Appearance: grossly normal and well kempt Mental Status: mental status grossly normal Speech and movement: Normal speech and movement present and Clear speech present Affect: normal affect Attitude: cooperative Thought process: Normal thought process present Thought content: Normal thought content present Insight: Fair insight present (Psych) Judgement: Fair judgement present (Psych) Results Reviewed Results Reviewed: Date of Service: 05/18/23 EXAMINATION: US RETROPERITONEAL LIMITED (RENAL ONLY) FINDINGS: RIGHT KIDNEY: 13.3 x 4.4 x 5.9 cm (SAG x AP x TRV). The kidney is normal in size, lobulated and echogenicity. Renal cortical thickness is normal. No calculi or focal parenchymal lesions. No hydronephrosis. LEFT KIDNEY: 13.9 x 5.2 x 5.8 cm (SAG x AP x TRV). The kidney is normal in size, contour, and echogenicity. Renal cortical thickness is normal. No calculi or focal parenchymal lesions. No hydronephrosis. US/US renal BI IMPRESSION: Lobulated contour right kidney otherwise appears unremarkable.. Previously CT described punctate nonobstructive calculi in both kidneys are not seen by ultrasound. The left kidney is unremarkable. Assessment & Plan Assessment & Plan (1) Elevated PSA: Code(s): R97.20 - Elevated prostate specific antigen [PSA] (2) Neurogenic bladder: Comment: Clean intermittent catheterization expected 4 times per day for the foreseeable future Code(s): N31.9 - Neuromuscular dysfunction of bladder, unspecified Plan Recent renal ultrasound results reviewed with the patient today; as noted above. Continue CIC; 14 [place] coude catheters Patient denies any signs or symptoms of urinary tract infection Continue trimethoprim 100 mg for suppression GEMA offered however deferred Will obtain PSA for further assessment and evaluation last PSA 01/06 Renal ultrasound in 1 year. PSA in 1 year Follow-up in 1 year with imaging and labs to be completed prior; or sooner with any issues, concerns, and or questions. Orders: Orders US renal BI 364 Days N31.9 - Neuromuscular dysfunction of bladder, unspecified Prostate Specific Antigen Today R97.20 - Elevated prostate specific antigen [PSA] Prostate Specific Antigen 364 Days R97.20 - Elevated prostate specific antigen [PSA] Coding Level of Care Code Est Pt Level 3 (39082) Diagnoses Elevated PSA R97.20 Neurogenic bladder N31.9
== END 2023-06-12 11:53 | disposition home or self-care (01) ==
PROVIDERS: PCP Nurse Practitioner Primary Care; Visit Provider Nurse Practitioner Family
DX: R97.20 Elevated prostate specific antigen [PSA] (principal); N31.9 Neuromuscular dysfunction of bladder, unspecified
CPT/HCPCS: 99213

== ENCOUNTER → 2023-06-12 10:53 | Outpatient (BNVA) | payer MEDICARE, SELFPAY | PROVIDERS: PCP Nurse Practitioner Primary Care; Visit Provider Nurse Practitioner Family | DX: R97.20 Elevated prostate specific antigen [PSA] (principal); N31.9 Neuromuscular dysfunction of bladder, unspecified | CPT/HCPCS: 99212 ==

== ENCOUNTER 2024-06-18 10:01 | Outpatient (REF) | payer MEDICARE, SELFPAY ==
--- NOTE | ~2024-06-18 | US_ITS ---
EXAMINATION: US RETROPERITONEAL LIMITED (RENAL ONLY) CLINICAL INFORMATION: Neuromuscular dysfunction of the bladder, unspecified. COMPARISON: Renal ultrasound 05/18/2023 and 09/08/2020. CT abdomen and pelvis 03/07/2023. TECHNIQUE: Real-time imaging of the kidneys. FINDINGS: RIGHT KIDNEY: 12.3 x 5.0 x 7.5 cm (SAG x AP x TRV). The kidney is normal in size and echogenicity with a slightly lobular contour. Renal cortical thickness is normal. No calculi or focal parenchymal lesions. No hydronephrosis. LEFT KIDNEY: 14.4 x 5.4 x 6.0 cm (SAG x AP x TRV). The kidney is normal in size, contour, and echogenicity. Renal cortical thickness is normal. No calculi or focal parenchymal lesions. No hydronephrosis. US/US renal BI IMPRESSION: Normal-appearing kidneys. The bilateral punctate renal calculi seen on the 03/07/2023 CT scan are not visible on the current exam. Electronically signed by: Fernando Gonzales MD 07/31/2024 12:24 PM UDAY MENESES
== END 2024-06-18 10:02 | disposition home or self-care (01) ==
LOC: HO.HMGCX 10:01
PROVIDERS: PCP Nurse Practitioner Primary Care; Visit Provider Nurse Practitioner Family
DX: N31.9 Neuromuscular dysfunction of bladder, unspecified (principal)
CPT/HCPCS: 76775

== ENCOUNTER 2025-03-10 14:59 | Outpatient (REF) | payer MEDICARE, SELFPAY ==
[2025-03-10 16:52] LABS: Prostate Specific Antigen 1.63 ng/mL (<0.05-4.0)
--- OUTSIDE RECORDS SUMMARY | 2025-03-10 18:13 | XMS_ITS | Encounter Summary ---
Author Organization [facility] Address [address] [place] [address] Care Team Providers Care Director Of Strategic Programs Name Role Phone Patient, Has No Pcp Or Ref Primary Care Provider Unavailable Encounter Details Date Type Department Care Team (Late st Contact Info) Description 01/23/2024 Orders Only [facility] Nuclear Medicine [address] [place] [address] [phone] Hermila Alvarez MD [address] [place] [address] [phone] Social History Tobacco Use Types Packs/Day Years [...] on file documented as of this encounter Plan of Treatment Not on file documented as of this encounter Visit Diagnoses Not on filedocumented in this encounter Care Teams Director Of Strategic Programs Relationship Specialty Start Date End Date Patient, Has No Pcp Or Ref DO NOT EDIT THIS RECORD VIA PROVIDER ON THE FLY PCP - General Slotter Operator Helper 02/16/22 documented as of this encounter
== END 2025-03-10 15:00 | disposition home or self-care (01) ==
LOC: HO.HMGCLDS 14:59
PROVIDERS: PCP Nurse Practitioner Primary Care; Visit Provider Nurse Practitioner Family
DX: Z12.5 Encounter for screening for malignant neoplasm of prostate (principal)
CPT/HCPCS: 36415; 84153

== ENCOUNTER 2025-03-11 11:43 | Outpatient (AMB) | payer MEDICARE, SELFPAY ==
--- NOTE | 2025-03-11 11:58 | MHC.OFFVIS ---
Intake Visit Reasons: yearly follow up/US Intake Note: Patient is present for follow up Neurogenic Bladder and Eelevated PSA PSA: 1.63 Urology Medication: Trimethoprim Blood Thinner: None Rural Mail Carrier Required: No Accompanied by: Self / Same As Patient Allergies No Known Allergies Allergy (Verified 03/11/25 22:11) lisinopril Adverse Reaction (Unknown, Verified 03/11/25 22:11) cough Medication List - Last Reconciled 03/11/25 by LANCE HerreraP- aspirin 325 mg PO DAILY bupropion HCl XL 150 mg PO QAM dextroamphetamine-amphetamine 30 mg 1 tab PO BID ezetimibe 10 mg PO DAILY hydrochlorothiazide 25 mg PO DAILY lamotrigine 300 mg PO BEDTIME lorazepam 1 mg PO BID PRN metformin mg PO metoprolol tartrate 50 mg PO BID naproxen 500 mg PO BID PRN quetiapine 50 mg PO BEDTIME trimethoprim 100 mg PO DAILY 90 days HPI Comments Details: Dillan is a very pleasant 59-year-old male patient of Dr. Lu. He has a past medical history of elevated liver enzymes, dyslipidemia, anxiety, GERD, mitral valve prolapse, hypertension, brain aneurysm, and neurogenic bladder. He presents to the office today for follow-up of his neurogenic bladder. During last office visit recommendations were made for annual follow-up however patient reports having missed his appointment. We did discussed importance of following up as recommended. Most recent renal imaging results were reviewed 07/10 bilateral kidneys with no calculi, lesions, and or hydronephrosis. Normal appearing kidneys previous bilateral punctate nephrolithiasis no longer noted. He continues to CIC typically every 3-4 hours daily. He currently denies any bothersome urinary issues or concerns. He denies any signs and symptoms of a urinary tract infection. When asked he denies hematuria, dysuria, foul smelling urine, changes to urinary stream, flank pain, fever, and or chills. GEMA offered however deferred. PSAs are as follows: 01/06 4.4, 03/11 1.6 He otherwise offers no other issues or concerns at this time. PREVIOUS OFFICE NOTE: Still maintaining CIC 14 [place] using trimethoprim three times per week for supression Will expect catheterization required for the foreseeable future Neurogenic Bladder: They are here for further management for incomplete emptying neurogenic bladder - catheterizing 4-6 times per day, Needs coude and has had no infections and no blood with coude. Will continue. Urinary retention initially found progressive development over time. Cystoscopy results Large bladder capacity, no prostate problems, irritated bladder will trying trimethoprim daily. Imaging results US shows poor bladder emptying - 500cc residual 09/02 - , US shows, no hydronephrosis. - 09/05 ultrasound normal -06/09 ultrasound normal Associated conditions Alzhiemers No CAD No CVA No Diabetes No Multiple sclerosis No renal replacement therapy No Spinal injury/surgery No Current management clean intermittent catheterization, 14 Fr coude - catheterization will be on going for the foreseeable future. Permanent neurogenic bladder. - continue with trimethoprim - had bleeding with 16 fR straight. Therapeutic plan continue with medication, clean intermittent catheterization increased from 3 times per day to 4 times per day. [facility] Medical History Elevated liver enzymes Dyslipidemia Anxiety GERD (gastroesophageal reflux disease) Retention of urine Intracranial aneurysm MVP (mitral valve prolapse) Essential hypertension Brain aneurysm Epididymitis Neurogenic bladder Surgical History History of vasectomy H/O brain surgery History of knee surgery Review of Systems Const Reports no additional complaints Eyes Reports no additional complaints ENT Reports no additional complaints Card Reports as per HPI Resp Reports no additional complaints GI Reports as per HPI Reports as per HPI Musc Reports no additional complaints Neuro Reports as per HPI Psych Reports as per HPI Endo Reports no additional complaints Clyde/Lymph Reports no additional complaints Aller/Immun Reports no additional complaints Physical Exam Const General: cooperative, healthy appearing, comfortable, no acute distress, well developed, alert and awake Orientation/consciousness: patient oriented x3 Limitations: no limitations HEENT Head: Yes normal to inspection, Yes normocephalic and Yes atraumatic Ears: hearing grossly normal bilaterally Eyes General: appearance normal, both eyes and all related structures Neck Neck: Yes normal visual inspection and Yes trachea midline Chest Chest palpation & inspection: normal inspection of the chest Resp Effort & Inspection: normal respiratory effort and able to speak in complete sentences Cardio Rate: regular rate GI Inspection: Yes normal to inspection General: Yes no CVA tenderness Back/Spine/Pelvis Back: no CVA tenderness Skin General skin exam: no rashes or lesions noted Neuro General: patient oriented x3 Extrem General: Yes normal to inspection Psych Appearance: grossly normal and well kempt Mental Status: mental status grossly normal Speech and movement: Normal speech and movement present and Clear speech present Affect: normal affect Attitude: cooperative Thought process: Normal thought process present Thought content: Normal thought content present Insight: Fair insight present (Psych) Judgement: Fair judgement present (Psych) Results AMB Urinalysis, Automated UA Leukoctes 500 Zeny/uL Last Edit by [employer], [facility] on 03/11/25 12:22 UA Nitrite Last Edit by R [facility], [facility] on 03/11/25 12:22 UA Urobilinogen 0.2 mg/dL Last Edit by R [facility], [facility] on 03/11/25 12:22 UA Protein 15 mg/dL Last Edit by R [facility], [facility] on 03/11/25 12:22 UA pH 7.0 Last Edit by R [facility] [employer], [facility] on 03/11/25 12:22 UA Blood 10 Brad/uL Last Edit by [facility], [facility] on 03/11/25 12:22 UA Specific [place] 1.020 Last Edit by [facility], [facility] on 03/11/25 12:22 UA Ketone Last Edit by [facility], [facility] on 03/11/25 12:22 UA Bilirubin 0 mg/dL Last Edit by R [facility] [employer], [facility] on 03/11/25 12:22 UA Glucose 0 mg/dL Last Edit by [facility], [facility] on 03/11/25 12:22 Results Reviewed Results Reviewed: Laboratory Last Values Urine pH (Auto) 7.0 03/11/25 12:21 Specific [place] (Auto) 1.020 03/11/25 12:21 Urine Protein (Auto) 15 mg/dL 03/11/25 12:21 Glucose (UA)(Auto) 0 mg/dL 03/11/25 12:21 Urine Blood (Auto) 10 Brad/uL 03/11/25 12:21 Urine Bilirubin (Auto) 0 mg/dL 03/11/25 12:21 Urine Urobilinogen (Auto) 0.2 mg/dL 03/11/25 12:21 Leukocyte Esterase (Auto) 500 Zeny/uL 03/11/25 12:21 Date of Service: 06/18/24 Procedure(s): US renal BI FINDINGS: RIGHT KIDNEY: 12.3 x 5.0 x 7.5 cm (SAG x AP x TRV). The kidney is normal in size and echogenicity with a slightly lobular contour. Renal cortical thickness is normal. No calculi or focal parenchymal lesions. No hydronephrosis. LEFT KIDNEY: 14.4 x 5.4 x 6.0 cm (SAG x AP x TRV). The kidney is normal in size, contour, and echogenicity. Renal cortical thickness is normal. No calculi or focal parenchymal lesions. No hydronephrosis. IMPRESSION: Normal-appearing kidneys. The bilateral punctate renal calculi seen on the 03/07/2023 CT scan are not visible on the current exam. Assessment & Plan Assessment & Plan (1) Elevated PSA: Code(s): R97.20 - Elevated prostate specific antigen [PSA] Category: Medical (2) Neurogenic bladder: Comment: Clean intermittent catheterization expected 4 times per day for the foreseeable future Code(s): N31.9 - Neuromuscular dysfunction of bladder, unspecified Category: Medical Plan In office urinalysis results reviewed with the patient today; as noted above; will send for urine cytology. Recent renal ultrasound results reviewed with the patient today; as noted above. Continue CIC; 14 [place]ran coude catheters Patient denies any signs or symptoms of urinary tract infection Continue trimethoprim 100 mg for suppression GEMA offered however deferred Recent PSA results reviewed with the patient today; as noted above. Follow-up in 1 year with PSA; or sooner with any issues, concerns, and or questions. Orders: Orders Prostate Specific Antigen 03/10/25 Z12.5 - Encounter for screening for malignant neoplasm of prostate AMB Urinalysis Automated Today Z13.9 - Encounter for screening, unspecified Urine Cytology Today R31.29 - Other microscopic hematuria Prostate Specific Antigen 1 Year N31.9 - Neuromuscular dysfunction of bladder, unspecified, R97.20 - Elevated prostate specific antigen [PSA] Patient Instructions: The patient had an opportunity to ask questions regarding the treatment plan. All questions were answered. Physical exam, labs, and imaging were discussed and reviewed in detail. As well as risks, benefits, and discussion of treatment choices. No major barriers to understanding were identified. The patient expressed understanding and agreement with the above treatment plan. The patient was made aware they should contact our office by phone for worsening of their current condition, the appearance of new symptoms, or with any questions or concerns. Compliance is encouraged with any medications and follow up testing that is ordered. It is a privilege to be allowed the opportunity to participate in? your urological care.? Again, if you have any questions or concerns If you have any questions or concerns please do not hesitate to contact me. The office is [phone]. This note is constructed using voice recognition software. While every effort has been made to ensure accuracy vp clinical research errors may have been included. Yours sincerely, JOHNNY Herrera Coding Level of Care Code Est Pt Level 3 (75735) Complex EM visit Add On G2211 Diagnoses Elevated PSA R97.20 Neurogenic bladder N31.9
--- OUTSIDE RECORDS SUMMARY | 2025-03-11 13:59 | XMS_ITS | Encounter Summary ---
Author Organization [facility] Address [address] [place] [address] Care Team Providers Care K9 Handler Name Role Phone Patient, Has No Pcp Or Ref Primary Care Provider Unavailable Encounter Details Date Type Department Care Team (Late st Contact Info) Description 01/23/2024 Orders Only [facility] Nuclear Medicine [address] [place] [address] [phone] Hermila Alvarez MD [address] [place] [address] [phone] Social History Tobacco Use Types Packs/Day Years [...] on filedocumented in this encounter Care Teams K9 Handler Relationship Specialty Start Date End Date Patient, Has No Pcp Or Ref DO NOT EDIT THIS RECORD VIA PROVIDER ON THE FLY PCP - General Education And Development Manager 02/16/22 documented as of this encounter
== END 2025-03-11 13:00 | disposition home or self-care (01) ==
LOC: HO.HUSH 11:44
PROVIDERS: PCP Nurse Practitioner Primary Care; Visit Provider Nurse Practitioner Family
DX: R97.20 Elevated prostate specific antigen [PSA] (principal); N31.9 Neuromuscular dysfunction of bladder, unspecified; Z13.9 Encounter for screening, unspecified
CPT/HCPCS: 99213; G2211

== ENCOUNTER 2025-03-11 11:43 | Outpatient (REF) | payer MEDICARE, SELFPAY ==
[2025-03-11 16:27] LABS: Urine Cytology See Pathology rpt
== END 2025-03-11 11:44 | disposition home or self-care (01) ==
LOC: HO.LNP 11:43
PROVIDERS: PCP Nurse Practitioner Primary Care; Visit Provider Nurse Practitioner Family
DX: R31.29 Other microscopic hematuria (principal); R97.20 Elevated prostate specific antigen [PSA]; N31.9 Neuromuscular dysfunction of bladder, unspecified
CPT/HCPCS: 81003; 88112; 99212

== ENCOUNTER 2025-05-20 23:15 | Emergency (ER) | payer MEDICARE, SELFPAY ==
--- OUTSIDE RECORDS SUMMARY | 2018-11-13 09:57 | XMS_ITS | Encounter Summary ---
Author Organization [facility] Address [address] [id number] Care Team Providers Care Learning Services Coordinator Name Role Phone No, Pcp Primary Care Provider Unavailabl e Encounter Details Date Type Department Care Team (Latest Contact Info) Description 11/13/2018 8:57 AM EST Hospital Encounter [facility] Interventional Radiology [address] [place], [place] [id number] Jason Mims MD [address] [place], [place] [id number] Brain aneurysm Social History Tobacco Use Types Packs/Day Years Used Date Smoking Tobacco: Every Day Cigarettes 0.8 35 Smokeless Tobacco: Never Comments::PT STATES SMOKES A BOUT A PACK OR LESS CIGARETTES A DAY Alcohol Use Standard Drinks/Week Comments Yes 0 (1 standard drink = 0.6 oz pur e alcohol) 4-6 beers/day Sex and Gender Information Value Date Recorded Sex Assigned at Male 01/30/2024 12:16 PM EDT Legal Sex Male 6:47 AM EDT Gender Identity Male 01/30/2024 12:16 PM EDT Sexual Orientation Not on file documented as of this encounter Last Filed Vital Signs Vital Sign Reading Time Taken Comments Blood Pressure 140/90 11/13/2018 4:00 PM EST Pulse 72 11/13/2018 4:00 PM EST Temperature - - Respiratory Rate 14 11/13/2018 4:00 PM EST Oxygen Saturation 93% 11/13/2018 4:00 PM EST Inhaled Oxygen Concentration - - Weight 108.9 kg (240 lb) 11/13/2018 9:14 AM EST Height 177.8 cm (5' 10 ) 11/13/2018 9:14 AM EST Body Mass Index 34.44 11/13/2018 9:14 AM EST documented in this encounter Nursing Notes * Aditi Pool RN - 11/13/2018 5:01 PM EST Pt met with Dr Mims and Jennifer Cabrera, discharged via wheelchair to car. documented in this encounter Miscellaneous Notes * Post-Procedure Note - Jason Mims MD - 11/13/2018 8:22 PM EST Post Procedure Access Check ?? HPI: Dillan Will is a 53 y.o. 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 He tolerated the procedure well without incident or complication. He was found to have no residual filling of the treated Right PCOM aneurysm. He was also found to have 2 new aneurysms in the right anterior choroidal and ventral aspect of the right ICA in close proximity to the treated right PCOM. The patient is resting comfortably and has no complaints. ?? Directed physical examination: The patient is a 53 y.o. year old male who is in no acute distress. The vitals are BP (!) 140/90 (BP Location: Left arm, Patient Position: Lying) Pulse 72 Resp (!) 14 Ht 1.778 m (5' 10 ) Wt 108.9 kg (240 lb) SpO2 93% BMI 34.44 kg/m?? The lungs are clear to auscultation bilaterally. Cardiovascular exam reveals a regular rate and rhythm. Pulse exam: Right DP: 2 Vascular access site: Right groin is soft and non-tender. There is no ecchymosis or signs of hematoma. The original dressing is clean, dry and intact. The abdomen is soft and non tender with active bowel sounds. NEUROLOGICAL EXAMINATION: Mental Status: Awake, alert and oriented to self, time, and place. Normal attention span, speech isfluent with normal repetition and comprehension. Mood and affect are appropriate. Motor: Moving all extremities without difficulty. Strength: 5/5 and equal bilaterally Sensory: Intact to light touch throughout Cerebellar Examination: No pronator drift. ?? Plan: Continue to monitor and D/C after bedrest if stable. Patient and his significant other, Silvina were updated post procedure by Dr. Mims. He discussed thestatus of the treated aneurysm and the 2 new aneurysms. He would like the patient to return in consult to discuss treatment of the 2 new aneurysm with a flow diverting stent. We will call him this week to schedule that consult. He has our office numbers and will call us with any questions or issues. Krysta Cabrera, [facility] Pager #[phone] Department of Neuro Imaging and Intervention For Jason Mims MD ?? * Post-Procedure Note - Jason Mims MD - 11/13/2018 1:26 PM EST Interventional Radiology Brief Postprocedure Note Dillan Will Attending: Dr. Jason Mims Submarine Diver: None Diagnosis: s/p stent assisted coiling for R PCOM aneurysm in 2008 Access Site: Right ELECTRIC POWERLINE EXAMINER Description of procedure: HEATH, RVA and LICA selectively catheterized. 5F Exoseal used for the R ELECTRIC POWERLINE EXAMINER access site. Anesthesia: Moderate Sedation Medication used: 3 mg Versed IV; 200 micrograms Fentanyl IV. Complications: None Estimated Blood Loss: minimal Specimen: None unless stated n/a Findings: No residual filling of the previously treated R PCoM aneurysm seen. 2 new aneurysms measuring approximately 2mm each seen in the rigft anterior choroidal and ventral aspect of the rigth ICA. The patient tolerated the procedure well without incident or complication and is in stable condition. See detailed result report with images in PACS. Family updated in person. 11/13/2018 1:26 PM * Pre-Procedure Note - Jason Mims MD - 11/13/2018 9:56 AM EST Neuro Interventional Pre-Procedure Note Indication for procedure: The encounter diagnosis was Brain aneurysm. HPI: Dillan Will is a 53 y.o. year old male who presents for follow up angiogram to evaluatehis previously treated aneurysm. Past Medical and Surgical History: Past Surgical History: Procedure Laterality Date OK REMOVAL OF TONSILS,<12 Y/O N/A History of Tonsillectomy ??? PROCEDURE - HISTORIC N/A History of Intracranial Aneurysm Repair COILING OF INTRACEREBRAL ANEURYSM ??? PROCEDURE - HISTORIC N/A History of Intracranial Aneurysm Repair Endovascular ??? PROCEDURE - HISTORIC N/A Influenza vaccine needed . Past Medical History: Diagnosis Date ??? Anemia Anemia 2009-02-17 ??? Attention-deficit hyperactivity disorder Attention-deficit/hyperactivity disorder 2008-09-25 ??? Bipolar affective disorder ([facility]) Bipolar Disorder NOS 2008-09-25 ??? Cervicalgia History of Cervicalgia 2009-02-23 ??? Essential (primary) hypertension Hypertension 2008-09-25 ??? Insomnia Insomnia 2009-04-07 ??? Major depressive disorder, single episode Depression 2008-09-25 ??? Nicotine dependence, uncomplicated Nicotine dependence 2008-09-25 ??? Obesity Obesity 2009-01-04 ??? Other fatigue Fatigue 2009-02-17 ??? Pain in knee Joint pain, knee Having surgery Sep 2008 2008-09-25 ??? Personal history of other (healed) physical injury and trauma History of abrasion left leg 04/06/09 2009-04-07 ??? Personal history of other endocrine, nutritional and metabolic disease History of hyperglycemia 2009-02-23 ??? Restless legs syndrome Restless legs syndrome 2008-09-25 ??? Self-catheterizes urinary bladder 3-4x/daily per patient ??? Subarachnoid hemorrhage ([facility]) 2007 from ruptured right PCOM aneurysm ??? Tension-type headache, not intractable Tension type headache 2009-02-23 ??? Tremor Tremor 2009-02-17 ??? Valvular disease Mitral regurgitation Relevant medications: No current facility-administered medications for this encounter. Home medications: Prior to Admission medications Medication Sig Start Date End Date Taking? Authorizing Provider aspirin 81 mg EC tablet Aspirin 81 MG TABS TAKE 1 TABLET DAILY. Quantity: 1; Refills: 0 ELIZABETH HOLT M.D.; Started 03-Nov-2008 Active 11/03/08 Yes Unknown Provider, buPROPion SR (WELLBUTRIN SR) 150 mg tablet Take 150 mg by mouth daily. Yes Unknown Provider, cetirizine (ZyrTEC) 10 mg tablet Take 10 mg by mouth daily as needed for seasonal allergies. Yes Unknown Provider, dextroamphetamine-amphetamine (ADDERALL) 30 mg tablet Adderall 30 MG Oral Tablet TAKE 1 TABLET TWICE DAILY. Refills: 0 Active Yes Unknown Provider, fish oil 340-1,000 mg capsule TAKE 2 CAPSULES DAILY Yes Unknown Provider, HYDROCHLOROTHIAZIDE ORAL Take 1 tablet by mouth daily. Yes Unknown Provider, lamoTRIgine (LaMICtal) 200 mg tablet TAKE 2 TABLETS AT BEDTIME (PT UNSURE OF DOSE) 02/17/09 Yes Unknown Provider, loratadine (CLARITIN) 10 mg tablet Loratadine 10 MG Oral Tablet TAKE 1 TABLET AT BEDTIME NEEDED. Quantity: 1; Refills: 0 ELIZABETH HOLT M.D.; Started 25-Sep-2008 Active 09/25/08 Yes Unknown Provider, LORazepam (ATIVAN) 1 mg tablet Take 1 mg by mouth 2 times a day as needed for anxiety. Yes Unknown Provider, losartan potassium (LOSARTAN ORAL) Take 1 tablet by mouth daily. Yes Unknown Provider, METOPROLOL SUCCINATE ORAL Take 1 tablet by mouth 2 times a day. Yes Unknown Provider, OMEPRAZOLE ORAL Take 2 capsules by mouth daily. Yes Unknown Provider, QUEtiapine (SEROquel) 400 mg tablet SEROquel 400 MG Oral Tablet TAKE 1 TABLET AT BEDTIME. Quantity: 1; Refills: 0 ELIZABETH HOLT M.D.; Started Active 02/17/09 Yes Unknown Provider, trimethoprim (TRIMPEX) 100 mg tablet PT STATES TAKING BACTRIM 1 TABLET DAILY ON MON-WED-FRI. DIRECTED. Yes Unknown Provider, Relevant family history: Noncontributory Relevant review of systems: As per HPI, otherwise negative. Allergies: Lisinopril and Penicillins Relevant Labs: CBC Latest Ref Rng & Units 11/05/2018 WBC 4.3 - 10.8 10*3/uL 9.4 Hgb 13.2 - 17.1 g/dL 15.3 Hct 39.0 - 52.0 % 44.1 MCV 80.0 - 100.0 fL 94.4 Plts 140 - 440 10*3/uL 220 Some recent data might be hidden Basic Metabolic Panel Latest Ref Rng & Units 11/05/2018 Sodium 135 - 145 mmol/L 133(L) Potassium 3.5 - 5.3 mmol/L 3.9 Chloride 97 - 110 mmol/L 98 Carbon Dioxide 24 - 32 mmol/L 26 Glucose 70 - 99 mg/dL 176(H) Creatinine 0.60 - 1.30 mg/dL 0.77 Calcium 8.7 - 10.7 mg/dL 9.9 eGFR >=90 mL/min/BSA >90 No results found for: PTT No results found for: PTT No results found for: HCGQUALUR Physical Exam: Vitals: Blood pressure (!) 123/94, pulse 66, resp. rate 20, height 1.778 m (5' 10 ), weight 108.9 kg (240 lb), SpO2 96 %. Neuro: Orientation: A/OX3 Motor: 5/5 strength bilateral upper and lower extremities as tested. Sensory: Intact to light touch throughout. Pulmonary: CTA B Cardiovascular: RRR GI: Soft and nontender. Pulse exam: Right DP: 2 Left DP 2 Airway/Teeth: edentulous upper NPO status: NPO Sedation Assessment: WNL ASA Classification: II (mild stable disturbance, e.g. HTN, stable CAD) No History of difficulties with previous anesthetics/intubation unless otherwise stated. Does the patient have any of the following conditions: Sleep Apnea, SAUD, Home oxygen use, Morbid Obesity, or swallowing issues: N/A Assessment/Plan: Dillan Will is a 53 y.o. year old male who will undergo a diagnotic cerebral angiogram with moderate sedation. Fabrice Delgado PA-C Neuro Interventional Radiology Pager: [phone] Attending MD: Jason Mims MD documented in this encounter Plan of Treatment Not on file documented as of this encounter Procedures * Due to [place] [employer] law, this organization might not be sharing negative HIV tests. Procedure Name Priority Date/Time Associated Diagnosis Comments IR NEURO ANGIOGRAPHY Routine 11/13/2018 1:34 PM EST Brain aneurysm documented in this encounter Results * Due to [place] [employer] law, this organization might not be sharing negative HIV tests. * IR Neuro Angiography (11/13/2018 1:34 PM EST) Anatomical Region Laterality Modality Lower Extremities, Upper Extremities X-Ray Angiography 11/27/2018 2:17 PM EDT Impressions 11/27/2018 2:48 PM EDT 1. Complete obliteration of a previously coiled and stented right posterior communicating artery aneurysm. No evidence of coil compaction. Stent is adequately positioned and widely patent. 2. 2 new de edenilson aneurysms series in the right supraclinoid ICA measuring approximately 2 mm each, in the right anterior choroidal artery region and in the ventral wall of the right supraclinoid ICA. 3. Focal segmental ectasia in the high left cervical ICA, grossly unchanged in comparison with prior study. A chronic focal dissection cannot be excluded. 4. The patient will be brought in for an outpatient consult to discuss these 2 de edenilson . [id number] Narrative 11/27/2018 2:48 PM EDT DIAGNOSTIC CEREBRAL ANGIOGRAPHY CLINICAL HISTORY: 53-year-old male with history of subarachnoid hemorrhage from a ruptured right P-comm aneurysm in [facility] in December 2007. Patient underwent subtotal coil embolization of the aneurysm in [facility]. Patient was brought back on 10/19/2008 for stent-assisted coiling embolization, which was successful. Six month followup angiogram showed complete obliteration of the aneurysm without any coil compaction or de edenilson aneurysm formation. Stent was seen and widely patent. Today patient comes back for a 10 year followup. COMPARISON: Catheter angiograms from 09/02/2008, 10/19/2008 and 05/06/2009, 01/18/2012. OPERATORS AND ATTENDING: Dr. Jason Mims (attending physician) TECHNIQUE: Diagnostic angiography with superselective catheterization of following vessels: 1. Right vertebral artery, intracranial Ale, and lateral views. 3. Right common carotid artery, cervical frontal and lateral views. 4. Right internal carotid artery, intracranial frontal lateral and magnified oblique views. 5. 3D angiogram of the right internal intracranial carotid artery, post processed in a separate workstation by de. Selected images were sent to PACS 6. Left common carotid artery, he cervical frontal and lateral views. 7. Left internal carotid artery, intracranial frontal, lateral and magnified oblique views. 8. Right femoral artery, oblique view. PROCEDURE REPORT: Informed consent: The details of the procedure including the benefits and risks were discussed with the patient, including minor, major stroke, and major bleeding necessitating surgical intervention, contrast reaction, groin hematoma and . Written informed consent was obtained and placed in the patient's medical chart. The right groin was draped and prepped in a sterile fashion. Using modified Seldinger technique and a micropuncture system, a 5 Chadian short femoral sheath was placed in the right common femoral artery. Then a Nicholson 2 catheter was then navigated over a Terumo 0.035 Glidewire into the aortic arch under fluoroscopic guidance. Under fluoroscopy, the catheter was then placed into the left vertebral artery. Ale and lateral angiograms of the head were obtained. Next, under fluoroscopic guidance, the catheter was placed in the right vertebral artery. Ale, lateral and magnified oblique angiograms of the head were obtained. Subsequently, under fluoroscopic guidance, the right common carotid artery was selected. Cervical frontal and lateral angiograms of the neck were performed. Using roadmapping technique, the right internal carotid artery was selected. Frontal, lateral and magnified oblique angiograms of the head were obtained. At this point, a 3-D angiogram was performed followed by reconstruction on a dedicated workstation by de. Selected images were sent to PACS. Next under fluoroscopic guidance, the catheter was placed in the left common carotid artery. Cervical frontal and lateral angiograms of the neck were performed. Using roadmapping technique, the left internal carotid artery was then selected. Frontal and lateral angiograms of the head were acquired. Finally, a right common femoral artery run demonstrated adequate utilization for a closure device. 5 Chadian Exoseal was placed was utilized to achieve adequate hemostasis in the right femoral artery. The Nicholson 2 catheter was subsequently withdrawn. Versed and Fentanyl were used for conscious sedation and pain medication, and injected intravenously by a registered nurse under direct physician supervision for this 1 hour procedure. Continuous cardiovascular monitoring was performed. FINDINGS: Right vertebral artery angiograms: Right dominant vertebral artery. The right vertebral artery, basilar artery, and both posterior cerebral arteries are unremarkable. Luminal caliber is smooth and tapering. No aneurysms or abnormally high-flow, early draining veins are seen. Right CCA angiogram: Cervical angiograms demonstrates mild tortuosity of the right ICA, unchanged in comparison with prior study. Both visualized right common carotid and internal carotid arteries have normal caliber. There are no significant stenoses. Right ICA angiograms: An obliterated right posterior communicating aneurysm is again noted, without evidence of coil compaction. 2 new aneurysms are seen measuring approximately 2 mm, one in the anterior choroidal artery origin and the other in the ventral wall of the right ICA, these aneurysms is separate from the previously treated right posterior communicating artery aneurysm shows no evidence of aneurysm filling, so these are de edenilson new aneurysms. The stent can be seen in adequate position and is widely patent. There is brisk vascular contrast filling in both the STEVE and MCA vascular trees. Luminal caliber is smooth and tapering. No abnormally high-flow, early draining veins are seen. No regions of abnormal hypervascularity are noted. Left CCA angiogram: Again is noted mild tortuosity and focal ectasia of the left high cervical internal carotid artery, grossly stable in comparison with prior study. There are no significant stenoses. A chronic focal dissection cannot be excluded. Left ICA angiograms: There is brisk vascular contrast filling in both the STEVE and MCA vascular trees. The contralateral right STEVE is also seen to fill. Luminal caliber is smooth and tapering. No aneurysms or abnormally high-flow, early draining veins are seen. No regions of abnormal hypervascularity are noted. The visualized dural sinuses are patent. Right common femoral artery angiogram: The level of groin puncture is at the common femoral artery, and thus adequate for Exoseal device utilization. Procedure Note Jason Mims MD - 11/27/2018 DIAGNOSTIC CEREBRAL ANGIOGRAPHY CLINICAL HISTORY: 53-year-old male with history of subarachnoid hemorrhage from a rupturedright P- comm aneurysm in [facility] in December 2007. Patient underwentsubtotal coil embolization of the aneurysm in [facility]. Patientwas brought back on 10/19/2008 for stent-assisted coiling embolization,which was successful. Six month followup angiogram showed completeobliteration of the aneurysm without any coil compaction or de novoaneurysm formation. Stent was seen and widely patent. Today patient comesback for a 10 year followup. COMPARISON: Catheter angiograms from 09/02/2008, 10/19/2008 and 05/06/2009,01/18/2012. OPERATORS AND ATTENDING: Dr. Jason Mims (attending physician) TECHNIQUE: Diagnostic angiography with superselective catheterization of followingvessels: 1. Right vertebral artery, intracranial Ale, and lateral views. 3. Right common carotid artery, cervical frontal and lateral views. 4. Right internal carotid artery, intracranial frontal lateral andmagnified oblique views. 5. 3D angiogram of the right internal intracranial carotid artery, postprocessed in a separate workstation by de. Selected images were sent toPACS 6. Left common carotid artery, he cervical frontal and lateral views. 7. Left internal carotid artery, intracranial frontal, lateral andmagnified oblique views. 8. Right femoral artery, oblique view. PROCEDURE REPORT: Informed consent: The details of the procedure including the benefits andrisks were discussed with the patient, including minor, major stroke, andmajor bleeding necessitating surgical intervention, contrast reaction, groin hematoma and . Written informed consent wasobtained and placed in the patient's medical chart. The right groin was draped and prepped in a sterile fashion. Usingmodified Seldinger technique and a micropuncture system, a 5 Chadian shortfemoral sheath was placed in the right common femoral artery. Then a Nicholson 2 catheter was then navigated over a Terumo 0.035 Glidewire into the aortic arch under fluoroscopic guidance. Under fluoroscopy, the catheter was then placed into the left vertebralartery. Ale and lateral angiograms of the head were obtained. Next, under fluoroscopic guidance, the catheter was placed in the rightvertebral artery. Ale, lateral and magnified oblique angiograms of thehead were obtained. Subsequently, under fluoroscopic guidance, the right common carotid arterywas selected. Cervical frontal and lateral angiograms of the neck wereperformed. Using roadmapping technique, the right internal carotid arterywas selected. Frontal, lateral and magnified oblique angiograms of thehead were obtained. At this point, a 3-D angiogram was performed followedby reconstruction on a dedicated workstation by de. Selected images weresent to PACS. Next under fluoroscopic guidance, the catheter was placed in the leftcommon carotid artery. Cervical frontal and lateral angiograms of the neckwere performed. Using roadmapping technique, the left internal carotidartery was then selected. Frontal and lateral angiograms of the head wereacquired. Finally, a right common femoral artery run demonstrated adequateutilization for a closure device. 5 Chadian Exoseal was placed wasutilized to achieve adequate hemostasis in the right femoral artery. The Nicholson 2 catheter was subsequently withdrawn. Versed and Fentanyl were used for conscious sedation and pain medication,and injected intravenously by a registered nurse under direct physiciansupervision for this 1 hour procedure. Continuous cardiovascular monitoring was performed. FINDINGS: Right vertebral artery angiograms: Right dominant vertebral artery. Theright vertebral artery, basilar artery, and both posterior cerebralarteries are unremarkable. Luminal caliber is smooth and tapering. No aneurysms or abnormally high-flow, early draining veins areseen. Right CCA angiogram: Cervical angiograms demonstrates mild tortuosity ofthe right ICA, unchanged in comparison with prior study. Both visualizedright common carotid and internal carotid arteries have normal caliber.There are no significant stenoses. Right ICA angiograms: An obliterated right posterior communicatinganeurysm is again noted, without evidence of coil compaction. 2 newaneurysms are seen measuring approximately 2 mm, one in the anteriorchoroidal artery origin and the other in the ventral wall of the rightICA, these aneurysms is separate from the previously treated rightposterior communicating artery aneurysm shows no evidence of aneurysmfilling, so these are de edenilson new aneurysms. The stent can be seen inadequate position and is widely patent. There is brisk vascular contrastfilling in both the STEVE and MCA vascular trees. Luminal caliber is smoothand tapering. No abnormally high-flow, early draining veins are seen. Noregions of abnormal hypervascularity are noted. Left CCA angiogram: Again is noted mild tortuosity and focal ectasia ofthe left high cervical internal carotid artery, grossly stable incomparison with prior study. There are no significant stenoses. A chronicfocal dissection cannot be excluded. Left ICA angiograms: There is brisk vascular contrast filling in both theACA and MCA vascular trees. The contralateral right STEVE is also seen tofill. Luminal caliber is smooth and tapering. No aneurysms or abnormallyhigh-flow, early draining veins are seen. No regions of abnormalhypervascularity are noted. The visualized dural sinuses are patent. Right common femoral artery angiogram: The level of groin puncture is atthe common femoral artery, and thus adequate for Exoseal deviceutilization. IMPRESSION: 1. Complete obliteration of a previously coiled and stented rightposterior communicating artery aneurysm. No evidence of coil compaction.Stent is adequately positioned and widely patent. 2. 2 new de edenilson aneurysms series in the right supraclinoid ICA measuringapproximately 2 mm each, in the right anterior choroidal artery region andin the ventral wall of the right supraclinoid ICA. 3. Focal segmental ectasia in the high left cervical ICA, grosslyunchanged in comparison with prior study. A chronic focal dissectioncannot be excluded. 4. The patient will be brought in for an outpatient consult to discussthese 2 de edenilson . [id number] Jason Mims MD IMG IR PROCEDURES Final Result documented in this encounter Visit Diagnoses Diagnosis Brain aneurysm (HCC) Cerebral aneurysm, nonruptured documented in this encounter Admitting Diagnoses Diagnosis Cerebral aneurysm rupture (HCC) Intracerebral hemorrhage documented in this encounter Administered Medications Inactive Administered Medications - up to 3 most recent administrations Medication Order MAR Action Action Date Dose Rate Site fentaNYL injection Code/trauma/sedation medication, Starting on Sun11/13/18 at 1227, Until Sun11/13/18 at 1319 Given 11/13/2018 1:19 PM EST 50 mcg Given 11/13/2018 1:00 PM EST 50 mcg Given 11/13/2018 12:33 PM EST 50 mcg iohexol (OMNIPAQUE) 240 mg iodine/mL contrast Code/trauma/sedation medication, Starting on Sun11/13/18 at 1319, Until Sun11/13/18 at 1319, Imaging Protocol Orders Given 11/13/2018 1:19 PM EST 120 mL Ri ght Groin lidocaine PF (XYLOCAINE) 1% (10 mg/mL) injection Code/trauma/sedation medication, Starting on Sun11/13/18 at 1256, Until Sun11/13/18 at 1256 Given 11/13/2018 12:56 PM EST 10 mL Right Groin midazolam (VERSED) injection Code/trauma/sedation medication, Starting on Sun11/13/18 at 1226, Until Sun11/13/18 at 1302 Given 11/13/2018 1:02 PM EST 1 mg Given 11/13/2018 12:53 PM EST 0.5 mg Given 11/13/2018 12:33 PM EST 0.5 mg documented in this encounter Care Teams Learning Services Coordinator Relationship Specialty Start Date End Date No, Pcp PCP - General 11/05/18 11/23/19 documented as of this encounter
--- NOTE | 2025-05-20 23:28 | ED.ALCOHOL ---
HPI - Alcohol General Chief Complaint: ETOH/Substance Use Stated Complaint: ETOH Time Seen by Provider: 05/20/25 23:22 Source: patient and EMS Mode of arrival: EMS Limitations: other History of Present Illness ED Provider: Dr. Joellen Mart HPI narrative: patient comes to the emergency room via ambulance for alcohol intoxication. According to the paramedics, patient's roommate found the patient walking unsteady in his own house, empty bottle of vodka. According to EMS, the roommate reported that she can not take care of him and did not want him in the house, therefore she asked him to bring him to the hospital. Patient is awake, alert, admits that he has been drinking alcohol, states that he has not fallen. Patient has multiple bruises in his abdomen but states that he injects himself with insulin. Patient states that he feels well other than a little bit intoxicated but has no complaints. Denies SI or HI Related Data Home Medications ?Medication ?Instructions ?Recorded ?Confirmed bupropion HCl 150 mg 24 hr tablet, 150 mg PO QAM 12/28/20 03/11/25 extended release dextroamphetamine-amphetamine 30 1 tab PO BID 12/28/20 03/11/25 mg tablet hydrochlorothiazide 25 mg tablet 25 mg PO DAILY 12/28/20 03/11/25 lamotrigine 150 mg tablet 300 mg PO BEDTIME 12/28/20 03/11/25 lorazepam 1 mg tablet 1 mg PO BID PRN anxiety 12/28/20 03/11/25 metoprolol tartrate 50 mg tablet 50 mg PO BID 12/28/20 03/11/25 quetiapine 50 mg tablet 50 mg PO BEDTIME 12/28/20 03/11/25 ezetimibe 10 mg tablet 10 mg PO DAILY 03/08/22 03/11/25 aspirin 325 mg tablet 325 mg PO DAILY 06/12/23 03/11/25 metformin 500 mg tablet mg PO 06/12/23 03/11/25 naproxen 500 mg tablet 500 mg PO BID PRN 03/11/25 03/11/25 Previous Rx's ?Medication ?Instructions ?Recorded trimethoprim 100 mg tablet 100 mg PO DAILY 90 days #90 tabs 11/10/24 Allergies Allergy/AdvReac Type Severity Reaction Status Date / Time No Known Allergies Allergy Verified 05/20/25 23:43 lisinopril AdvReac Unknown cough Verified 03/11/25 22:11 Review of Systems Review of Systems: Constitutional : No Weight loss, No Fever, No Chills, No Night Sweats, No Fatigue, No Malaise ENT/Mouth : No Hearing loss, No Ear Pain, No Nasal Congestion, No Sinus Pain, No Hoarseness, No sore throat, No Rhinorrhea, No Swallowing Difficulty Eyes: No Eye Pain, No Swelling, No Redness, No Foreign Body, No Discharge, No Vision Changes Cardiovascular : No Chest Pain, No SOB, No Dyspnea on Exertion, No Orthopnea, No Edema, No Palpitations Respiratory : No Cough, No Sputum, No Wheezing, No Smoke Exposure, No Dyspnea Gastrointestinal : No Nausea, No Vomiting, No Diarrhea, No Constipation, No abdominal Pain, No Hematochezia, No Melena Genitourinary : no irregular bleeding, No Dysuria, No Urinary Frequency, No Hematuria, No Urinary Incontinence, No Urgency, No Flank Pain, No Urinary Flow Changes, No Hesitancy Musculoskeletal : No joint pain, No Myalgias, No Joint Swelling Skin : No Skin Lesions, No rash Neuro : No Weakness, No Numbness, No Paresthesias, No Loss of Consciousness, No Dizziness, No Headache Psych : No Anxiety/Panic, No Depression, No SI/HI/AH/VH, admits to drinking alcohol today Heme/Lymph: No Bruising, No Bleeding,No Lymphadenopathy Endocrine : No Polyuria, No Polydipsia, No Temperature Intolerance [facility] Past Medical History Medical History Elevated liver enzymes Dyslipidemia Anxiety GERD (gastroesophageal reflux disease) Retention of urine Intracranial aneurysm MVP (mitral valve prolapse) Essential hypertension Brain aneurysm Epididymitis Neurogenic bladder Surgical History History of vasectomy H/O brain surgery History of knee surgery Social History Social History Unable to assess alcohol history related to: Unknown Alcohol intake: current Alcohol intake frequency: 3 or more drinks per day Smoked in Last 30 Days: Yes Use of substances other than those prescribed or required for medical reasons: No Advance Directives: No Do you have a plan to hurt others: No Plan Physical Exam ED Exam Exam: Appearance: Alert. Oriented X3. No acute distress. slurring words a bit, admits to ETOH Eyes: Pupils equal, round and reactive to light. ENT: Pharynx normal. Neck: Normal inspection. Neck supple. No lymph nodes noted. No crepitus CVS: Normal heart rate and rhythm. Pulses normal. Normal S1 and S2 Respiratory: No respiratory distress. Breath sounds normal. No Wheezing. No rales Abdomen: Soft and nontender. No rigidity. No distention. Skin: Skin warm and dry. Normal skin color. Normal skin turgor. Extremities: No lower extremity edema. No Lacerations. No Rash Neuro: Oriented X 3. No motor deficit. No sensory deficit. Moving all extremities. CN 2 through 12 grossly intact Psych: calm, cooperative, slurring words, a bit intoxicated Vital Signs: Vital Signs - 24 hr 05/20/25 23:38 05/21/25 00:22 05/21/25 05:12 Temperature 97.5 F 97.5 F 98.3 F Pulse Rate 77 77 77 Respiratory Rate 16 16 16 Blood Pressure 107/70 107/70 97/61 Pulse Oximetry 95 95 94 Oxygen Delivery Method Room Air Room Air Room Air BMI result Body Mass Index 27.3 Course Course Course Narrative: patient is a bit intoxicated, still able to have a fairly normal conversation. Starting words a bit patient states that he has a sober ride who can pick him up. Patient agreeable to stay until somebody picks him up. Patient has no complaints, denies SI or HI. Patient denies any falls or injuries. Patient declining blood work. Patient is searching for a sober ride physician observation started at 23:30 Medical Decision Making Medical Decision Making MDM Narrative: Patient had a good night, no incidents. Patient will be woken up, given breakfast and discharged. Differential Diagnosis Differential Diagnoses: The differential diagnosis associated with the presentation includes ( Alcohol intoxication, polysubstance abuse) Admission/Observation Consideration of admission/observation: Escalation of care including admission/observation considered ( at this time, 06:30, patient is awake, alert, ready to be discharged. Patient states that he has a sober ride they can, pick him up) Critical Care Time Critical Care Time Critical Care Time: Yes Total Critical Care Time: 35 Attestation: I have personally provided critical care time. Time includes review of lab data, radiology results, discussion with consultants, and monitoring for potential decompensation. Intervention performed as documented. Discharge Plan Discharge Clinical Impression: Alcohol intoxication Patient Disposition: Home, Self-Care Instructions: Alcohol Intoxication (DC) Additional Instructions: Alcohol use disorder You were seen in the Emergency Department today for treatment of alcohol use disorder.? You may have been given medications to help with your withdrawal symptoms.? Please do not drink alcohol with them. This is very dangerous and can cause respiratory depression or other adverse reactions depending on the medication. If you would like to cut down or stop your alcohol use please consider calling our outpatient Addiction Treatment office:? [facility] (M-F [id number]) [address] You have also been given a list of treatment providers in the area that can assist as well.? If you experience seizures, vomiting blood, black stools, falls, severe headache, chest pain, fevers, trouble breathing, hallucinations or any other concerns you need to call 911 or seek immediate care. Please stay hydrated. Prescriptions: No Action trimethoprim 100 mg tablet 100 mg PO DAILY 90 Days Qty: 90 1RF lorazepam 1 mg tablet 1 mg PO BID PRN (Reason: anxiety) dextroamphetamine-amphetamine 30 mg tablet 1 tab PO BID quetiapine 50 mg tablet 50 mg PO BEDTIME bupropion HCl 150 mg tablet extended release 24 hr 150 mg PO QAM metoprolol tartrate 50 mg tablet 50 mg PO BID lamotrigine 150 mg tablet 300 mg PO BEDTIME hydrochlorothiazide 25 mg tablet 25 mg PO DAILY naproxen 500 mg tablet 500 mg PO BID PRN ezetimibe 10 mg tablet 10 mg PO DAILY metformin 500 mg tablet PO aspirin 325 mg tablet 325 mg PO DAILY Print Language: Tamazight
[2025-05-20 23:38] VITALS: BP 107/70; PULSE 77; RESP 16; TEMP 36.4; O2SAT 95; BMI 27.3
--- OUTSIDE RECORDS SUMMARY | 2025-05-21 00:01 | XMS_ITS | Clinical Summary ---
Author Organization [facility] Address [address] [place] [address] Care Team Providers Care Carbon Printer Name Role Phone Ref, Has No Pcp Or Primary Care Provider Unavail able Allergies Active Allergy Reactions Criticality Noted Date Comments Lisinopril Cough 11/01/2018 Penicillins Unknown 11/05/2018 Medications dextroamphetami ne-amphetamine (ADDERALL) 30 mg tablet Adderall 30 MG Oral Tablet TAKE 1 TABLET TWICE DAILY. Refills: 0 Active Active loratadine (CLARITIN) 10 mg tablet Loratadine 10 MG Oral Tablet TAKE 1 TABLET AT BEDTIME NEEDED. Quantity: 1; Refills: 0 JOHN HOLT M.D.; Started 25-Sep-2008 Active 9 Active LORazepam (ATIVAN) 1 mg tablet Take 1 mg by mouth 2 times a day as needed for anxiety. Active trimethoprim (TRIMPEX) 100 mg tablet PT STATES TAKING BACTRIM 1 TABLET DAILY ON MON-WED-FRI. DIRECTED. Active fish oil 340-1,000 mg capsule 2 times a day. TAKE 1 capsule twice daily Active acetaminophen (TYLENOL) 325 mg tablet Take 2 tablets (650 mg total) by mouth every 4 hours as needed for pain, headache or fever. 0 9 Active multivitamin capsule Take 1 capsule by mouth daily. Active metoprolol tartrate (LOPRESSOR) 50 mg tablet Take 50 mg by mouth 2 times a day. 6 9 Active omeprazole (PriLOSEC) 40 mg capsule Take 40 mg by mouth 2 times a day. 3 9 Active buPROPion XL (WELLBUTRIN XL) 150 mg tablet Take 150 mg by mouth daily. 5 9 Active hydroCHLOROthia zide (HYDRODIURIL) 25 mg tablet Take 25 mg by mouth daily. 3 9 Active lamoTRIgine (LaMICtal) 150 mg tablet Take 300 mg by mouth nightly. at bedtime 1 9 Active QUEtiapine (SEROquel) 100 mg tablet TAKE 1/2 TO 1 TABLET BY MOUTH AT BEDTIME NEEDED 5 9 Active aspirin tablet 325 mg Take 325 mg by mouth daily. Active cetirizine (ZyrTEC) 10 mg tablet Take 10 mg by mouth daily. Active vitamin D3 25 mcg (1,000 unit) capsule Take 1 capsule by mouth daily. Active famotidine (PEPCID) 10 mg tablet Take 10 mg by mouth 2 times a day. Active potassium chloride ER (MICRO-K) 10 mEq capsule Take 10 mEq by mouth 2 times a day. Active vitamin B complex-vitamin C-folic acid (NEPHROCAPS) 1 mg capsule Take 1 capsule by mouth once a day. Active Active Problems Problem Noted Date Diagnosed Date Cigarette smoker 12/05/2018 Medication induced coagulopathy 12/05/2018 Self-catheterizes urinary bladder 12/05/2018 Overview (12/05/2018): 3-4x/daily per patient Bipolar Disorder 06/02/2009 Hypertension 06/02/2009 Cerebral aneurysm without rupture 06/02/2009 Overview (06/05/2017): ANEURYSM, CEREBROVASCULAR, off plavix April 2009, Dr Morrison Periodic limb movement disorder 06/02/2009 Overview (06/05/2017): RESTLESS LEG SYNDROME Insomnia 04/07/2009 Tension type headache 02/23/2009 Tremor 02/17/2009 Anemia 02/17/2009 Fatigue 02/17/2009 Obesity 01/04/2009 Bipolar Disorder NOS 09/25/2008 Joint pain, knee 09/25/2008 Overview (06/05/2017): Having surgery Sep 2008 Attention-deficit/hyperactivity disorder 009 Nicotine dependence 09/25/2008 Restless legs syndrome 09/25/2008 Depression 09/25/2008 Influenza vaccine needed 09/25/2008 Resolved Problems Problem Noted Date Diagnosed Date Resolved Date Cerebral aneurysm rupture 11/13/2018 Immunizations Immunization Administration Dates Next Due Influenza, Trivalent, MDV, Injectable 09/25/2008 Family History Medical History Relation Name Comments Heart disease Father Prostate cancer Father Aortic aneurysm Mother Brain Aneurysm Mother Other Other Denied Family h istory of Colon Cancer Relation Name Status Comments Father Mother Other Social History Tobacco Use Types Packs/Day Years Used Date Smoking Tobacco: Every Day Cigarettes 0.8 35 Smokeless Tobacco: Never Tobacco Cessation:Ready to Q uit: No; Counseling Given: No Comments::PT STATES SMOKES ABOUT A PACK OR LESS CIGARETTES A DAY Alcohol Use Standard Drinks/Week Comments Yes 0 (1 standard drink = 0.6 oz pur e alcohol) 4-6 beers/day Sex and Gender Information Value Date Recorded Sex Assigned at Male 01/30/2024 12:16 PM EDT Legal Sex Male 6:47 AM EDT Gender Identity Male 01/30/2024 12:16 PM EDT Sexual Orientation Not on file Last Filed Vital Signs Vital Sign Reading Time Taken Comments Blood Pressure 136/98 02/21/2022 2:40 PM EDT Pulse 76 02/21/2022 2:40 PM EDT Temperature 36.8 C (98.3 F) 02/21/2022 9:00 AM EDT Respiratory Rate 16 02/21/2022 2:40 PM EDT Oxygen Saturation 98% 02/21/2022 2:40 PM EDT Inhaled Oxygen Concentration - - Weight 90.3 kg (199 lb) 04/05/2020 12:34 PM EDT Height 177.8 cm (5' 10 ) 04/05/2020 12:34 PM EDT Body Mass Index 28.55 04/05/2020 12:34 PM EDT Plan of Treatment Health Maintenance Due Date Last Done Comments Cologuard 1967 Colonoscopy 1967 HIV Screening 1967 Hepatitis C Screening 1967 Sigmoidoscopy 1967 Hepatitis B Vaccines (1 of 3 - 19+ 3-dose series) 1986 Colon Cancer Screening 02/17/2010 FOBT / Fit Test 02/17/2010 02/17/2009 Pneumococcal Vaccine: 50+ Ye ars (2 of 2 - PCV) 08/16/2016 08/16/2015 CT Lung Cancer Screening (Baseline) 2017 Zoster Vaccines (2 of 2) 01/12/2023 11/17/2022 Alcohol/Substance Use Screening 09/17/2024 Depression Screening and Follow-Up 09/17/2024 Social Drivers of Health Jennifer ual Screening 09/17/2024 COVID-19 Vaccine (5 - 2024-2 6 season) 2025 09/08/2022, 06/13/2021, 01/05/2021, Additional history exists Influenza Vaccine (#1) 2025 , 06/13/2021, 08/25/2019, Additional history exists Basic Metabolic Panel 08/02/2025 08/02/2024 , 07/21/2024, 02/21/2022, Additional history exists DTaP,Tdap,and Td Vaccines (4 - Td or Tdap) 11/17/2032 11/17/2022, 02/08/2022, 08/16/2015 RSV Vaccine (60+ years old a nd patients) (1 - 1-dose 75+ series) 2042 Medical Devices Implanted Type Area Proofing Machine Operator Device Identifier Shelf Expiration Date Model / Serial / Lot Ev3 Pipeline Flex 4mm X 25mm Implanted:Qty: 1 on 12/05/2018 at [facility] Stent [employer] 10/04/2019 PED-400 -[id number] / / [id number] Procedures * Due to [place] [employer] law, this organization might not be sharing negative HIV tests. Procedure Name Priority Date/Time Associated Diagnosis Comments BASIC METABOLIC PANEL Routine 02/21/2022 8:39 AM EDT Cerebral aneurysm without rupture OCCULT BLOOD, FECAL (FIT) Routine 02/17/2009 12:01 AM EDT from Last 3 Months or Most Recently Relevant to Health Maintenance Results * Due to [place] [employer] law, this organization might not be sharing negative HIV tests. * (ABNORMAL) Basic Metabolic Panel (02/21/2022 8:39 AM EDT) NA 140 135 - 145 mmol/L 02/21/2022 9:33 AM EDT [facility] K 4.3 3.5 - 5.3 mmol/L 02/21/2022 9:33 AM EDT [facility] Cl 101 97 - 110 mmol/L 02/21/2022 9:33 AM EDT [facility] CO2 29 24 - 32 mmol/L 02/21/2022 9:33 AM EDT [facility] BUN 3(L) 7 - 23 mg/dL 02/21/2022 9:33 AM EDT [facility] Creatinine 0.72 0.60 - 1.30 mg/dL 02/21/2022 9:33 AM EDT [facility] Glucose 101(H) 70 - 99 mg/dL 02/21/2022 9:33 AM EDT [facility] Calcium 9.4 8.7 - 10.7 mg/dL 02/21/2022 9:33 AM EDT [facility] Anion Gap 10 5 - 15 02/21/2022 9:33 AM EDT [facility] eGFR >90 >=90 mL/min/1. 73m2 02/21/2022 9:33 AM EDT [facility] Comment: Estimated Glomerular Filtration Rate (GFR) calculated using the CKD-EPI refit equation. The different stages of CKD form a continuum. The stages of CKD are classified as follows : Stage 1: Kidney damage with normal or increased GFR (>90 mL/min/1.73 m2) Stage 2: Mild reduction in GFR (60-89 mL/min/1.73 m2) Stage 3a: Moderate reduction in GFR (45-59 mL/min/1.73 m2) Stage 3b: Moderate reduction in GFR (30-44 mL/min/1.73 m2) Stage 4: Severe reduction in GFR (15-29 mL/min/1.73 m2) Stage 5: Kidney failure (GFR < 15 mL/min/1.73 m2 or dialysis) Blood Structure of peripheral vein / Unknown Venipuncture / Unknown 02/21/2022 8:39 AM EDT 02/21/2022 8:58 AM EDT us Jason Mims MD LAB BLOOD ORDERABLES Final Resul t Performing Organization Address City/[facility]/ZIP Co de Phone Number [facility] [address] [place] [address], * Occult Blood, Fecal (FIT) (02/17/2009 12:01 AM EDT) Occult Blood Fecal NEGATIVE NEGATIVE FIT [facility] 02/17/2009 12:0 1 AM EDT 02/23/2009 11:03 AM EDT [facility] LAB BODY FLUIDS AND STOOLS OR DERABLES Final Result Performing Organization Address [facility] Co de Phone Number [facility] [address] [place] [address], from Last 3 Months or Most Recently Relevant to Health Maintenance Insurance [facility] [employer]ACE A[employer] Advance Directives Documents on File Type Date Recorded Patient Protective Signal Installer Helper Expl anation Health Care Proxy 12/09/2018 2:48 PM Healt h Care Proxy (12/26/11) Advance Directive 02/06/2012 12:00 AM Adva misael Care Directives Advance Directive 12/26/2011 12:00 AM cayla Gutierrez edical Dec Making (Adv.Dir) * Full Code (Latest Code Status on File) Date Activated Date Inactivated Comments 12/05/2018 6:48 PM 12/06/2018 1:02 PM Care Teams Carbon Printer Relationship Specialty Start Date End Date Ref, Has No Pcp Or DO NOT EDIT THIS RECORD VIA PROVIDER ON THE FLY PCP - General Senior Electrical Estimator 02/16/22
--- OUTSIDE RECORDS SUMMARY | 2025-05-21 00:01 | XMS_ITS | Clinical Summary ---
Author Organization [facility] Address [address] [place] [address] Care Team Providers Care Faculty I On Call Medical Assistant Name Role Phone Unavailable Primary Care Provider Unavailabl e Social History Tobacco Use Types Packs/Day Years Used Date Smoking Tobacco: Never Assessed Sex and Gender Information Value Date Recorded Sex Assigned at Not on file Gender Identity Not on file Sexual Orientation Not on file Plan of Treatment Not on file
--- OUTSIDE RECORDS SUMMARY | 2025-05-21 00:01 | XMS_ITS | Clinical Summary ---
Author Organization [facility] Address [address] [place] [address] Phone Care Team Providers Care Marine Pilot Name Role Phone Vernell Lu NP Primary Care Provider [phone] Allergies Active Allergy Reactions Criticality Noted Date Comments Lisinopril Cough 11/21/2022 Penicillins Unknown 12/18/2024 Medications aspirin 325 mg tablet Take 325 mg by mouth daily. Active buPROPion XL (WELLBUTRIN XL) 150 mg 24 hr tablet Take 150 mg by mouth every morning. Active cetirizine (ZyrTEC) 10 mg tablet Take 10 mg by mouth daily. Active hydroCHLOROthi azide (HYDRODIURIL) 25 mg tablet Take 25 mg by mouth daily. Active lamoTRIgine (LaMICtal) 150 mg tablet Take 200 mg by mouth at bedtime. Active LORazepam (ATIVAN) 1 mg tablet Take 1 mg by mouth every 6 hours as needed. Active metFORMIN XR (GLUCOPHAGE-XR ) 500 mg 24 hr tablet Take 1 Tablet by mouth daily (with breakfast). Active metoprolol tartrate (LOPRESSOR) 50 mg tablet Take 50 mg by mouth 2 times daily. Active naltrexone (DEPADE) 50 mg tablet Take 1 Tablet by mouth daily. Active omega-3 acid ethyl esters (LOVAZA) 1 gram capsule Take 1,000 mg by mouth 2 times daily. 12/10/19 Active QUEtiapine (SEROquel) 100 mg tablet 2.5 tablets (250 mg total). Active trimethoprim (TRIMPEX) 100 mg tablet Take 100 mg by mouth three times a week. Active amphetamine-de xtroamphetamin e (ADDERALL) 30 mg tablet Take 30 mg by mouth daily. Active polyethylene glycol (Golytely) 236-22.74-6.74 -5.86 gram solution Take 4L by mouth once for one dose. May substitue any PEG. Starting at 6PM the night before your procedure drink 1 8oz glasses at your own pace until you complete half of the gallon. Finish 2nd half of the gallon 5 hours before your procedure. 4000 mL 12/18/19 25 Active Additional Information Patient not taking.Reported on 12/18/2024 bisacodyL (DULCOLAX) 5 mg EC tablet Take 2 tablets by mouth right before beginning bowel prep. See instructions provided by the office 2 tablet 12/18/19 25 Active Additional Information Patient not taking.Reported on 12/18/2024 isosorbide mononitrate (IMDUR) 30 mg 24 hr tablet TAKE 1 TABLET BY MOUTH DAILY (DO NOT CRUSH OR CHEW) 90 tablet 2 02/24/20 25 Active bisacodyL (DULCOLAX) 5 mg EC tablet Take 2 tablets by mouth right before beginning bowel prep. See instructions provided by the office 2 tablet 03/05/20 25 Active polyethylene glycol (Golytely) 236-22.74-6.74 -5.86 gram solution Take 4L by mouth once for one dose. May substitue any PEG. Starting at 6PM the night before your procedure drink 1 8oz glasses at your own pace until you complete half of the gallon. Finish 2nd half of the gallon 5 hours before your procedure. 4000 mL 03/05/20 25 Active lamoTRIgine (LaMICtal) 25 mg tablet Take 2 tablets (50 mg total) by mouth 1 (one) time each day. Active clonazePAM (KlonoPIN) 1 mg tablet Take 1 tablet (1 mg total) by mouth 2 (two) times a day. 02/08/20 25 Active Lantus Solostar U-100 Insulin 100 unit/mL (3 mL) injection pen 03/05/20 25 Active omeprazole (PriLOSEC) [address] capsule Take 1 capsule (40 mg total) by mouth 1 (one) time each day. 02/19/20 25 Active gabapentin (NEURONTIN) 100 mg capsule Take 1 capsule (100 mg total) by mouth 3 (three) times a day. 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 At that time, he was recommended to undergo a left heart catheterization for further evaluation of his coronary anatomy. Unfortunately, the patient was hospitalized at that time and the procedure was never rescheduled. The patient had been lost in follow-up since then. On today's visit, we discussed these results of his nuclear stress test. He continues to experience symptoms of chest discomfort and shortness of breath. He has presumed coronary artery disease given the results. Therefore, we will proceed with left heart catheterization for further evaluation. Risks and benefits of coronary angiogram discussed with patient including the increased risk for bleeding and the less than 0.1% risk for MT, stroke or . The patient understands and wishes to proceed with coronary angiogram. All questions answered. Patient advised to refrain from exertional activites and to seek emergency medical attention if he develops chest pain or dyspnea which does not resolve with rest or sublingual nitroglycerin. He will continue on medical therapy with aspirin, Zetia, isosorbide mononitrate, and metoprolol. Will also have him undergo an echocardiogram to evaluate his LV function. Patient advised to seek emergency medical attention by calling 911 if they were to develop severe dyspnea, chest pain that did not resolve with rest or nitroglycerin, or if they were to faint. Orders: Transthoracic echocardiogram (TTE) complete with PRN contrast, bubble, strain, and 3D order panel; Future Chest pain 06/13/2024 Overview (07/31/2024): Last Assessment & Plan: On today's visit, the patient states that he has had a few episodes of chest discomfort during the past 6 months. The description of his symptoms is consistent with atypical chest discomfort. He denies any chest discomfort induced or worsened by exertion. The patient does have a history of coronary artery calcifications, hypertension, and chronic smoker. His last ischemic evaluation was in 2021 with a nuclear stress test that did not show any evidence of ischemia or infarct but did show evidence of coronary artery calcifications in the LAD and circumflex. Given his current symptoms, we will proceed with an ischemic reevaluation. Will order a nuclear stress test. Will also order an echocardiogram to reevaluate his cardiac function. In the meantime, we will continue his current medication regimen with aspirin, ezetimibe, and metoprolol. Insert warning the patient has a history of coronary artery disease. During today's visit, we reviewed the warning signs that should prompt an urgent medical evaluation. Specifically, we discussed that the patient should go to the hospital if she develops any chest discomfort at rest lasting for more than 20 minutes or worsening chest discomfort with exertion. Assessment & Plan (12/18/2024 11:49 AM EDT): Plan as outlined below under CAD Orders: Transthoracic echocardiogram (TTE) complete with PRN contrast, bubble, strain, and 3D order panel; Future Shortness of breath 09/13/2023 Overview (07/31/2024): Last Assessment & Plan: The patient has been having occasional episodes of chest discomfort with associated shortness of breath. The patient does have a history of chronic smoker. His symptoms may be due to underlying coronary artery disease and therefore we will proceed with further evaluation with a nuclear stress test. However, we also need to consider the possibility of pulmonary disease as a cause of his symptoms given his history of chronic smoker. As such, we will proceed with a pulmonary function test. Will also proceed with a chest CT scan to evaluate his pulmonary parenchyma. Assessment & Plan (12/18/2024 11:49 AM EDT): Plan as outlined above for CAD Orders: Transthoracic echocardiogram (TTE) complete with PRN contrast, bubble, strain, and 3D order panel; Future HLD (hyperlipidemia) 12/09/2021 Overview (07/31/2024): Last Assessment & Plan: The patient has a history of hyperlipidemia. He is currently on Zetia 10 mg orally daily. His LDL target is 70 or below given his history of coronary artery calcification. Will order a lipid panel to evaluate his lipid control and determine the need to make any adjustments in his lipid-lowering therapy. Assessment & Plan (12/18/2024 11:49 AM EDT): The patient has a history of hyperlipidemia as well as a history of coronary artery calcifications and presumed coronary artery disease based on recent nuclear stress test. He continues on ezetimibe 10 mg orally daily. His last fasting lipid panel showed acceptable cholesterol control, however we discussed given his recent cardiac testing, he will require stricter cholesterol control. Therefore, recommend he undergo a fasting lipid panel to reassess his lipid control to determine if we need to start him on statin therapy. His recent ALT and AST were within normal limits with chronic elevated alk phos level likely due to history of alcohol abuse. He will continue to work on healthy lifestyle and diet. I have reviewed with the patient the importance of a heart healthy lifestyle which includes eating a low-fat low-salt diet, getting regular exercise, maintaining a healthy weight, not smoking, and following up with routine medical care. Orders: Lipid panel with reflex to direct LDL; Future Smoking 12/09/2021 Overview (07/31/2024): Last Assessment & Plan: The patient has a history of chronic smoker. During today's visit, he had extensive conversation with the patient regarding importance of quitting smoking. Explained to the patient that continued smoking could lead to worsening CAD, MT, a CVA, or a malignancy. The patient is aware about the consequences of continued smoking but he states that he will continue to smoke. Coronary artery calcification 12/09/2021 Overview (07/31/2024): Last Assessment & Plan: The patient has a history of coronary artery calcification. The patient is currently on therapy with ezetimibe and aspirin. His last ischemic evaluation was with a nuclear stress test in September 2021 that did not show any evidence of ischemia or infarct but it did show evidence of moderate coronary artery calcifications in the LAD and circumflex. The patient does have multiple risk factors for coronary artery disease given his history of chronic smoker and hypertension. On today's visit, he describes symptoms of atypical chest discomfort. As such, we will proceed with further testing with a nuclear stress test. The patient has a history of coronary artery disease. During today's visit, we reviewed the warning signs that should prompt an urgent medical evaluation. Specifically, we discussed that the patient should go to the hospital if she develops any chest discomfort at rest lasting for more than 20 minutes or worsening chest discomfort with exertion. Assessment & Plan (12/18/2024 11:49 AM EDT): Ascending aortic aneurysm ([facility] V24) 12/10/19 Overview (07/31/2024): Last Assessment & Plan: The patient has a history of an ascending thoracic aortic aneurysm. Risk factors: 1. The patient does have a family history of aortic aneurysm. The patient states that his mother from complications from an aortic aneurysm at the age of 82. His maternal aunt also from complications of an aortic aneurysm in her 70s. 2. The patient does not have any history of connective tissue disease. 3. The patient has a trileaflet aortic valve as noted on his echocardiogram done in November 2022. Previous ascending thoracic aorta imaging: The patient's ascending aorta was noted to measure 4.1 cm on the echocardiogram done in November 2023. Overall, no significant changes in the ascending aorta diameter when compared to the previous echocardiogram from November 2022, August 2021, October 2020, November 2019. Abdominal aorta evaluation: 1. No evidence of abdominal aortic aneurysm on the abdominal MRI done in November 2021. Given his risk profile, the criteria for repair according to the 202 ACC aortic disease guidelines are: Ascending thoracic aneurysm measuring more than 5.5 cm (level 1 recommendation) or measuring more than 5.0 cm (level 2A recommendation) or rapid growth (defined as a growth of more than 0.3 cm/year in 2 consecutive years or more than 0.5 cm /year in a single year-level 1 recommendation). Has this patient met guideline recommended criteria for repair: No Blood pressure controlled: Yes Is the patient on beta-blockers or ABHI inhibitors: Yes (beta-blockers). Management plan: 1. Obtain CT scan with contrast for reevaluation of the patient's ascending thoracic aortic aneurysm. 2. Obtain genetic testing to rule out a familial genetic associated with his ascending aortic aneurysm. Education plan: 1. The patient was extensively counseled during today's visit regarding the warning symptoms that should prompt an urgent evaluation in the emergency room given his history of an aortic aneurysm. Specifically, the patient was instructed to go to the emergency room immediately if he had any symptoms of sudden chest, back, or abdominal pain. 2. The patient was extensively counseled during today's visit regarding the weight lifting restrictions that he should maintain in order to avoid worsening dilation of his aneurysm or an acute aortic syndrome such as an aortic dissection. The patient was counseled regarding the fact that an acute aortic syndrome such as an aortic dissection could be fatal. As such, he was instructed to avoid lifting any objects weighing more than 30 pounds. The patient was also counseled to avoid participating in any contact sports. Assessment & Plan (12/18/2024 11:49 AM EDT): Stable mild dilation of ascending aorta based on prior imaging as outlined above. His last echocardiogram showed ascending aorta November 2023 at 4.1. Will proceed with echocardiogram to reevaluate. Orders: Transthoracic echocardiogram (TTE) complete with PRN contrast, bubble, strain, and 3D order panel; Future Medication induced coagulopathy ([facility] V24) Bipolar I disorder, single m anic episode ([facility] V24, [facility] V28) 06/02/2009 Cerebral aneurysm without rupture 06/02/2009 Overview (04/10/2025): ANEURYSM, CEREBROVASCULAR, off plavix April 2009, Dr Morrison Hypertension 06/02/2009 Periodic limb movement disorder 06/02/2009 Overview (04/10/2025): RESTLESS LEG SYNDROME Insomnia 04/07/2009 Tension type headache 02/23/2009 Anemia 02/17/2009 Fatigue 02/17/2009 Tremor 02/17/2009 Obesity 01/04/2009 Attention-deficit/hyperactivity disorder 009 Bipolar affective disorder ([facility] V24, [facility] V28) 09/25/2008 Joint pain, knee 09/25/2008 Overview (04/10/2025): Having surgery Sep 2008 Major depressive disorder, single episode 2008 Nicotine dependence 09/25/2008 Restless legs syndrome 09/25/2008 Encounters Date Type Department Care Team Description 03/06/2025 9:00 AM EDT Ancillary Procedure [facility] [address] [place] [address] Chest pain, unspecified type; 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 ([facility] V24); Shortness of breath; Aneurysm of ascending aorta without rupture ([facility] V24) 02/25/2025 Telephone [facility] - [place] [address] [place] [address] Candida Mendez LPN 02/24/2025 Telephone [facility] [address] [place] [address] Gladys Cash NP from Last 3 Months Immunizations Name Administration Dates Next Due Influenza Quadravalent, MDCK , 0.5ml, preservative free (Flucelvax) 6mo and older 09/08/2022,04/26/2017 Influenza Quadrivalent, 0.5m l, preservative free (Fluarix; FluLaval; Fluzone) ages 6mo and older (Afluria) 3yo and older 08/21/2017 Influenza Quadrivalent, with preservative (Fluzone; Afluria) 6mo and older 08/25/2019 Influenza trivalent, with pr eservative (Fluzone; Afluria) 6mo and older 06/13/2021,08/16/2015,09/25/2008 Pneumococcal polysaccharide 23 valent (Pneumovax 23) 2yo and older 08/16/2015 Tdap Tetanus diptheria acell ular pertussis (Boostrix; Adacel) 7yo and older 11/17/2022,02/08/2022,08/16/2015 Zoster recombinant (Shingrix ) 19yo and older 11/17/2022 Surgical History Surgery Date Site/Laterality Comments CHOLECYSTECTOMY VASECTOMY INTRACRANIAL ANEURYSM REPAIR CARDIAC CATHETERIZATION DONE AT [facility] w/KM ON 01/15/25. INDICATIONS: Abnormal stress perfusion study Medical History Medical History Date Comments Acute alcoholic pancreatitis ETOH abuse Hypertension Diabetes mellitus ([facility] V24, [facility] V28) CAD (coronary artery disease) Aorta aneurysm ([facility] V24) H/O knee surgery Cirrhosis ([facility] V24, [facility] V28) GERD (gastroesophageal reflux disease) Cystitis Social History Tobacco Use Types Packs/Day Years Used Date Smoking Tobacco: Every Day Cigarettes Smokeless Tobacco: Never Tobacco Cessation:Ready to Q uit: Not Asked; Counseling Given: Not Answered Comments:Between 15 and 20 cigarettes per day (less than a pack) Alcohol Use Standard Drinks/Week Comments Not Currently 0 (1 standard drink = 0.6 oz pur e alcohol) Interpersonal Safety Answer Date Record ed Physical Abuse 12/31/2024 Verbal Abuse 12/31/2024 Sex and Gender Information Value Date Recorded Sex Assigned at Male 11/28/2024 12:29 PM EDT Legal Sex Male 1:05 PM EST Gender Identity Male 11/28/2024 12:29 PM EDT Sexual Orientation Straight 11/28/2024 12 :29 PM EDT Obstetrics History Last Filed Vital Signs Vital Sign Reading Time Taken Comments Blood Pressure 113/71 03/06/2025 9:37 AM EDT Pulse 84 01/17/2025 4:13 PM EDT Temperature 36.6 C (97.9 F) 01/17/2025 4:08 PM EDT Respiratory Rate 16 01/17/2025 4:13 PM EDT Oxygen Saturation 99% 01/17/2025 4:13 PM EDT Inhaled Oxygen Concentration - - Weight 83.5 kg (184 lb) 03/06/2025 9:37 AM EDT Height 177.8 cm (5' 10 ) 03/06/2025 9:37 AM EDT Body Mass Index 26.4 03/06/2025 9:37 AM EDT Plan of Treatment Upcoming Encounters Date Type Department Care Team (Late st Contact Info) Description 07/10/2025 11:00 AM EDT Office Visit [facility]astroenterology - [place] [address] [place] [address] Patti Pereyra, ED[address] [place] [address] Health Maintenance Due Date Last Done Comments Hepatitis A Vaccines (1 of 2 - Risk 2-dose series) 1986 Hepatitis B Vaccines (1 of 3 - 19+ 3-dose series) 1986 Pneumococcal Vaccine: 50+ Years (2 of 2 - PCV) 08/16/2016 08/16/2015 HIV Screening 08/26/2022 Hepatitis C Screening 08/26/2022 Lung Cancer Screening (Low Dose CT) 08/26/2022 Medicare Annual Wellness Visit 08/26/2022 Social Influencers of Health Screening 08/26/2022 Zoster Vaccines (2 of 2) 01/12/2023 11/17/2022 COVID-19 Vaccine ( season) 2024 09/08/2022, 06/13/2021, 01/05/2021, Additional history exists Depression Screening 09/17/2024 Influenza Vaccine (#1) 2025 , 06/13/2021, 08/25/2019, Additional history exists Hypertension/CHF/CAD Annual BMP Blood Test 02/17/2026 02/17/2025, 01/17/2025, 11/28/2024, Additional history exists Cholesterol Screening (Lipid Panel) 02/17/2030 02/17/2025, 07/21/2024 DTaP,Tdap,and Td Vaccines (4 - Td or Tdap) 11/17/2032 11/17/2022, 02/08/2022, 08/16/2015 Colorectal Cancer Screening: Colonoscopy 12/31/2034 12/31/2024 HIB Vaccines Aged Out No longer eligi ble based on patient's age to complete this topic HPV Vaccines Aged Out No longer eligi ble based on patient's age to complete this topic IPV Vaccines Aged Out No longer eligi ble based on patient's age to complete this topic MMR Vaccines Aged Out No longer eligi ble based on patient's age to complete this topic Meningococcal ACWY Vaccine Aged Out N o longer eligible based on patient's age to complete this topic Meningococcal B Vaccine Aged Out No l onger eligible based on patient's age to complete this topic RSV Immunization Patients Under 20 months Aged Out No longer eligible based on patient's age to complete this topic Varicella Vaccines Aged Out No longer eligible based on patient's age to complete this topic Procedures Procedure Name Priority Date/Time Associated Diagnosis Comments TRANSTHORACIC ECHOCARDIOGRAM (TTE) COMPLETE Routine 03/06/2025 9:38 AM EDT Chest pain, unspecified type 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 (CMS/HCC V24) Shortness of breath Aneurysm of ascending aorta without rupture (CMS/HCC V24) COMPREHENSIVE METABOLIC PANEL Routine 02/17/2025 12:31 PM EDT Gastric tympany LIPID PANEL WITH REFLEX TO DIRECT LDL Routine 02/17/2025 12:31 PM EDT Mixed hyperlipidemia COLONOSCOPY Routine 12/31/2024 2:14 PM EDT Encounter for screening colonoscopy from Last 3 Months or Most Recently Relevant to Health Maintenance Results * (ABNORMAL) TRANSTHORACIC ECHOCARDIOGRAM (TTE) COMPLETE (03/06/2025 9:38 AM EDT) Left Atrium Minor [place] 5.4 cm CV PACS Left Atrium Major [place] 5.2 cm CV PACS LA Area Sys (A2C) 21 cm2 CV PACS LA Area Sys (A4C) 19 cm2 CV PACS LA Volume (BP) 59 mL CV PACS RA Area 23.5 cm2 CV PACS RA 2D Volume 69 mL CV PACS AV Mean Gradient 3 mmHg CV PACS Ao VTI 22.5 cm CV PACS AV Peak Vinnie 1.2 m/s CV PACS AV Peak Gradient 6 mmHg CV PACS AV Area Continuity Equation 2.8 cm2 CV PACS AV Area Peak Velocity 2.9 cm2 CV PACS Ascending Aorta 4.2 cm CV PACS IVC Proximal 1.6 cm CV PACS LVOT Diameter 2.1 cm CV PACS LVOT Mean Grad 2 mmHg CV PACS LVOT Peak VTI 18.3 cm CV PACS LVOT Mean Vinnie 0.7 m/s CV PACS LVOT Peak Vinnie 1.1 m/s CV PACS LVOT Peak Gradient 4 mmHg CV PACS MV E' Tissue Velocity Lateral 8 cm/s CV PACS MV E' Tissue Velocity Septal 7 cm/s CV PACS LVOT Area 3.5 cm2 CV PACS LVOT Stroke Volume 63 mL CV PACS E Wave Deceleration Time 222 119 - 242 ms CV PACS MV Peak A Vinnie 0.70 m/s CV PACS MV Peak E Vinnie 0.50 m/s CV PACS PV Acceleration Time 144 ms CV PACS PV Acceleration Time 144 ms CV PACS PV Peak Velocity 0.8 m/s CV PACS PV Peak Gradient 2 mmHg CV PACS RV Diastolic Basal Dimension 4.0 2.5 - 4.1 cm CV PACS RV S' 13 cm/s CV PACS TAPSE 24 mm CV PACS TR Peak Velocity 1.90 m/s CV PACS TR Peak Gradient 14 mmHg CV PACS E/E' Ratio Septal 7 CV PACS E/E' Ratio Averaged 7 CV PACS LVOT Stroke Index 31 mL/m2 CV PACS LVOT:AV VTI Index 0.81 CV PACS Ascending Aorta Index 2.09 cm/m2 CV PACS LVOT flow 242 mL/s CV PACS RA 2D Volume Index 34 18 - 32 mL/m2 CV PACS ALICIA Index (VTI) 1.40 cm2/m2 CV PACS ALICIA Index (Pk Vinnie) 1.44 cm2/m2 CV PACS AV Velocity Ratio 0.92 CV PACS E/A Ratio 0.7 0.8 - 2.0 CV PACS E/E' Ratio Lateral 6 CV PACS LA Volume Index (BP) 29 mL/m2 CV PACS BSA 2.03 m2 CV PACS LVIDD 4.9 4.2 - 5.8 cm CV PACS LVIDD Index 2.44 cm/m2 CV PACS LVPWD 0.9 0.6 - 1.0 cm CV PACS IVSD 1.0 0.6 - 1.0 cm CV PACS LV Mass 2D 164 96 - 200 g CV PACS LV Mass Index 2D 82 50 - 102 g/m2 CV PACS Relative Wall Thickness ratio 0.37 0.24 - 0.42 CV PACS LVOT Cardiac Output 0.0 L/min CV PACS LVOT Cardiac Index 0.0 L/min/m2 CV PACS RV Free Wall Peak S' 13 cm/s CV PACS RA Major [place]dee 6.1 cm CV PACS RA Major [place] Index 3.0(A) 2.1 - 2.7 cm/m2 CV PACS MV PHT 64 ms CV PACS AV Area 2D 2.9 cm2 CV PACS ALICIA Index (2D) 1.44 cm2/m2 CV PACS Inferior Vena Cava Diameter At Expiration 1.6 cm CV PACS IVC Expiration Index 0.80 cm/m2 CV PACS AV Area Index 1.4 CV PACS LVIDS 3.3 2.5 - 4.0 cm CV PACS LVIDS Index 1.64 cm/m2 CV PACS FS 33 % CV PACS Right Ventricular Peak Systolic Pressure 22 mmHg CV PACS Est. RA Pressure 8 mmHg CV PACS Aortic Root 4.0 cm CV PACS Aortic Root Index 1.99 cm/m2 CV PACS Anatomical Region Laterality Modality Ultrasound Narrative 03/31/2025 4:34 PM EDT Left ventricle cavity size is normal. Left ventricular systolic function is in the normal range with an ejection fraction of 55-60%. No regional LV wall motion abnormalities noted. Right ventricle cavity is normal. Right ventricular systolic function is normal. Mitral Valve: There is mild regurgitation. Aorta: The ascending aorta is mildly dilated (4.2 cm). Left Ventricle Left ventricle cavity size is normal. Wall thickness is normal. Systolic function is normal with an ejection fraction of 55-60%. There are no regional LV wall motion abnormalities. There is no diastolic dysfunction. Right Ventricle Right ventricle cavity appears normal. Systolic function is normal. Left Atrium Left atrium volume index is normal. Right Atrium Right atrium cavity is normal. IVC/SVC RA pressures is estimated to be 8 mmHg (IVC diameter <21 mm and decreases <50% during inspiration). Mitral Valve The leaflets are mildly thickened. There is mild regurgitation. There is no evidence of mitral valve stenosis. Tricuspid Valve The leaflets exhibit normal excursion. There is trace regurgitation. There is no evidence of tricuspid valve stenosis. The RVSP is estimated at 22 mmHg. Aortic Valve The aortic valve is trileaflet. There is no regurgitation or stenosis. Pulmonic Valve Visualized portions of the pulmonic valve appear normal. There is trace pulmonic valve regurgitation. There is no evidence of pulmonic valve stenosis. Ascending Aorta The ascending aorta is mildly dilated (4.2 cm). Pericardium Pericardium appears normal. There is no pericardial effusion. Study Details Overall the study quality was technically difficult. us Oriana Morley NP CV ECHO PROCEDURES Final Re sult * Lipid panel with reflex to direct LDL (02/17/2025 12:31 PM EDT) Cholesterol 130 0 - 200 mg/dL LAB CHEMISTRY METHOD 02/17/2025 6:43 PM EDT [facility] Triglycerides 126 0 - 150 mg/dL LAB CHEMISTRY METHOD 02/17/2025 6:43 PM EDT [facility] HDL 41 >=40 mg/dL LAB CHEMISTRY METHOD 02/17/2025 6:43 PM EDT [facility] LDL Calculated 64 0 - 100 mg/dL LAB CHEMISTRY METHOD 02/17/2025 6:43 PM EDT [facility] VLDL Cholesterol Adarsh 25.2 mg/dL LAB CHEMISTRY METHOD 02/17/2025 6:43 PM EDT [facility] Non HDL Chol. (LDL+VLDL) 89 <145 mg/dL LAB CHEMISTRY METHOD 02/17/2025 6:43 PM EDT [facility] Chol/HDL Ratio 3.2 0.0 - 4.4 LAB CHEMISTRY METHOD 02/17/2025 6:43 PM EDT [facility] Blood Venous blood specimen / Unknown Venipuncture / Unknown 02/17/2025 12:31 PM EDT 02/17/2025 12:31 PM EDT us Oriana Morley NP LAB BLOOD ORDERABLES Final Result [facility] [address] [place] [address], [place] [phone] * (ABNORMAL) Comprehensive metabolic panel (02/17/2025 12:31 PM EDT) Sodium 132(L) 133 - 145 mmol/L LAB CHEMISTRY METHOD 02/17/2025 6:43 PM [facility] Potassium 4.1 3.5 - 5.5 mmol/L LAB CHEMISTRY METHOD 02/17/2025 6:43 PM [facility] Chloride 100 96 - 110 mmol/L LAB CHEMISTRY METHOD 02/17/2025 6:43 PM [facility] CO2 27 21 - 32 mmol/L LAB CHEMISTRY METHOD 02/17/2025 6:43 PM [facility] Anion Gap 5 3 - 11 LAB CHEMISTRY METHOD 02/17/2025 6:43 PM [facility] Glucose 330(H) 70 - 100 mg/dL LAB CHEMISTRY METHOD 02/17/2025 6:43 PM [facility] BUN 22 5 - 25 mg/dL LAB CHEMISTRY METHOD 02/17/2025 6:43 PM [facility] Creatinine 0.78 0.70 - 1.30 mg/dL LAB CHEMISTRY METHOD 02/17/2025 6:43 PM [facility] eGFR 104 >=60 mL/min/1. 73m2 LAB CHEMISTRY METHOD 02/17/2025 6:43 PM [facility] Comment:Calculation based on the Chronic Kidney Disease Epidemiology Collaboration (CKD-EPI) equation refit without adjustment for race. BUN/Creatinine Ratio 28.2 LAB CHEMISTRY METHOD 02/17/2025 6:43 PM [facility] Calcium 9.8 8.5 - 10.5 mg/dL LAB CHEMISTRY METHOD 02/17/2025 6:43 PM [facility] AST (SGOT) 21 10 - 42 unit/L LAB CHEMISTRY METHOD 02/17/2025 6:43 PM [facility] ALT (SGPT) 41 10 - 60 unit/L LAB CHEMISTRY METHOD 02/17/2025 6:43 PM [facility] Alkaline Phosphatase 419(H) 42 - 121 unit/L LAB CHEMISTRY METHOD 02/17/2025 6:43 PM EDT [facility] Total Protein 8.2(H) 6.0 - 8.0 g/dL LAB CHEMISTRY METHOD 02/17/2025 6:43 PM EDT [facility] Albumin 4.3 3.2 - 5.0 g/dL LAB CHEMISTRY METHOD 02/17/2025 6:43 PM EDT [facility] Total Bilirubin 0.5 0.0 - 1.4 mg/dL LAB CHEMISTRY METHOD 02/17/2025 6:43 PM EDT [facility] Blood Venous blood specimen / Unknown Venipuncture / Unknown 02/17/2025 12:31 PM EDT 02/17/2025 12:31 PM EDT Oriana Morley NP LAB BLOOD ORDERABLES Final Result [facility] [address] [place] [address], * COLONOSCOPY Anesthesia - [facility] [place]; [facility] ENDOSCOPY (12/31/2024 2:14 PM EDT) Anatomical Region Laterality Modality Endoscopy 12/31/2024 1:51 PM EDT Impressions 12/31/2024 2:21 PM EDT - Preparation of the colon was poor. - No specimens collected. Recommendation: - Discharge patient to home. - Repeat colonoscopy at the next available appointment because the bowel preparation was suboptimal. Narrative 12/31/2024 2:21 PM EDT [facility] Patient Name: Saranya Will Procedure Date: 12/31/2024 1:51 PM Date of : 1965 Age: 59 Gender: Male Note Status: Finalized Attending MD: Jd Davidson MD, Procedure Date No Time: 12/31/2024 Procedure: Colonoscopy Indications: Screening for colorectal malignant neoplasm Providers: Jd Davidson MD Referring MD: Jd Davidson MD Medicines: Monitored Anesthesia Care Complications: No immediate complications. Estimated blood loss: None. Estimated Blood Loss: Estimated blood loss: none. Procedure: Pre-Anesthesia Assessment: - Prior to the procedure, a History and Physical was performed, and patient medications and allergies were reviewed. The patient is competent. The risks and benefits of the procedure and the sedation options and risks were discussed with the patient. All questions were answered and informed consent was obtained. Patient identification and proposed procedure were verified by the physician, the nurse, the railroad dispatcher and the sleep lab technician in the pre-procedure area in the endoscopy suite. Mental Status Examination: alert and oriented. Airway Examination: normal oropharyngeal airway and neck mobility. Respiratory Examination: clear to auscultation. CV Examination: normal. Prophylactic Antibiotics: The patient does not require prophylactic antibiotics. Prior Anticoagulants: The patient has taken no anticoagulant or antiplatelet agents. ASA Grade Assessment: IV - A patient with severe systemic disease that is a constant threat to life. After reviewing the risks and benefits, the patient was deemed in satisfactory condition to undergo the procedure. The anesthesia plan was to use monitored anesthesia care (MAC). Immediately prior to administration of medications, the patient was re-assessed for adequacy to receive sedatives. The heart rate, respiratory rate, oxygen saturations, blood pressure, adequacy of pulmonary ventilation, and response to care were monitored throughout the procedure. The physical status of the patient was re-assessed after the procedure. After I obtained informed consent, the scope was passed under direct vision. Throughout the procedure, the patient's blood pressure, pulse, and oxygen saturations were monitored continuously.The Olympus Colonoscope was introduced through the anus with the intention of advancing to the cecum. The scope was advanced to the sigmoid colon before the procedure was aborted. Medications were given. The colonoscopy was performed without difficulty. The patient tolerated the procedure well. The quality of the bowel preparation was poor. Findings: The perianal and digital rectal examinations were normal. Procedure Code(s): --- Professional --- G0121, 53, Colorectal cancer screening; colonoscopy on individual not meeting criteria for high risk Diagnosis Code(s): --- Professional --- Z12.11, Encounter for screening for malignant neoplasm of colon CPT copyright 2020 [employer]. All rights reserved. The codes documented in this report are preliminary and upon disaster recovery consultant review may be revised to meet current compliance requirements. Jd Davidson MD 12/31/2024 2:21:04 PM This report has been signed electronically.Jd Davidson MD Number of Addenda: 0 Note Initiated On: 12/31/2024 1:51 PM Scope In: Scope Out: Endoscopy Department at [facility] - [address] [place] [id number] Procedure Note Jd Davidson MD - 12/31/2024 [facility] Patient Name: Saranya Will Procedure Date: 12/31/2024 1:51 PM Date of : 1965 Age: 59 Gender: Male Note Status: Finalized Attending MD: Jd Davidson MD, Procedure Date No Time: 12/31/2024 Procedure: Colonoscopy Indications: Screening for colorectal malignant neoplasm Providers: Jd Davidson MD Referring MD: Jd Davidson MD Medicines: Monitored Anesthesia Care Complications: No immediate complications. Estimated blood loss:None. Estimated Blood Loss: Estimated blood loss: none. Procedure: Pre-Anesthesia Assessment: - Prior to the procedure, a History and Physicalwas performed, and patient medications and allergieswere reviewed. The patient is competent. The risks and benefits of the procedure and the sedation optionsand risks were discussed with the patient. Allquestions were answered and informed consent was obtained. Patient identification and proposed procedure were verified by the physician, the nurse, theanesthetist and the sleep lab technician in the pre-procedure area in the endoscopy suite. Mental Status Examination: alertand oriented. Airway Examination: normal oropharyngeal airway and neck mobility. Respiratory Examination: clear to auscultation. CV Examination: normal. Prophylactic Antibiotics: The patient does notrequire prophylactic antibiotics. Prior Anticoagulants: The patient has taken no anticoagulant or antiplatelet agents. ASA Grade Assessment: IV - A patient with severe systemic disease that is a constant threatto life. After reviewing the risks and benefits, the patient was deemed in satisfactory condition to undergo the procedure. The anesthesia plan was touse monitored anesthesia care (MAC). Immediately priorto administration of medications, the patient was re-assessed for adequacy to receive sedatives. The heart rate, respiratory rate, oxygen saturations, blood pressure, adequacy of pulmonary ventilation,and response to care were monitored throughout the procedure. The physical status of the patient was re-assessed after the procedure. After I obtained informed consent, the scope was passed under direct vision. Throughout theprocedure, the patient's blood pressure, pulse, and oxygen saturations were monitored continuously.The Olympus Colonoscope was introduced through the anus withthe intention of advancing to the cecum. The scope was advanced to the sigmoid colon before the procedurewas aborted. Medications were given. The colonoscopywas performed without difficulty. The patient tolerated the procedure well. The quality of the bowel preparation was poor. Findings: The perianal and digital rectal examinations were normal. Procedure Code(s): --- Professional --- G0121, 53, Colorectal cancer screening; colonoscopyon individual not meeting criteria for high risk Diagnosis Code(s): --- Professional --- Z12.11, Encounter for screening for malignantneoplasm of colon CPT copyright 2020 [employer]. All rights reserved. The codes documented in this report are preliminary and upon disaster recovery consultant reviewmay be revised to meet current compliance requirements. Jd Davidson MD 12/31/2024 2:21:04 PM This report has been signed electronically.Jd Davidson MD Number of Addenda: 0 Note Initiated On: 12/31/2024 1:51 PM Scope In: Scope Out: Endoscopy Department at [address] [id number] IMPRESSION: - Preparation of the colon was poor. - No specimens collected. Recommendation: - Discharge patient to home. - Repeat colonoscopy at the next availableappointment because the bowel preparation was suboptimal. 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 Health Care Decision (hx) 02/02/2022 AD WHITAKER DIRECTIVE Health Care Decision (hx) 02/02/2022 AD WHITAKER DIRECTIVE Health Care Decision (hx) 02/02/2022 AD WHITAKER DIRECTIVE Health Care Decision (hx) 02/02/2022 AD WHITAKER DIRECTIVE Health Care Decision (hx) 02/02/2022 AD WHITAKER DIRECTIVE Health Care Decision (hx) 02/02/2022 AD WHITAKER DIRECTIVE Health Care Decision (hx) 02/02/2022 AD WHITAKER DIRECTIVE Health Care Decision (hx) 02/02/2022 AD WHITAKER DIRECTIVE Health Care Decision (hx) 02/02/2022 AD WHITAKER DIRECTIVE Health Care Decision (hx) 02/02/2022 AD WHITAKER DIRECTIVE Health Care Decision (hx) 02/02/2022 AD WHITAKER DIRECTIVE Health Care Decision (hx) 02/02/2022 AD WHITAKER DIRECTIVE Health Care Decision (hx) 02/02/2022 AD WHITAKER DIRECTIVE Health Care Decision (hx) 02/02/2022 AD WHITAKER DIRECTIVE Health Care Decision (hx) 01/30/2022 AD WHITAKER DIRECTIVE Health Care Decision (hx) 01/30/2022 AD WHITAKER DIRECTIVE Health Care Decision (hx) 01/30/2022 AD WHITAKER DIRECTIVE Health Care Decision (hx) 01/30/2022 AD WHITAKER DIRECTIVE Health Care Decision (hx) 01/30/2022 AD WHITAKER DIRECTIVE Health Care Decision (hx) 01/30/2022 AD WHITAKER DIRECTIVE Health Care Decision (hx) 01/30/2022 AD WHITAKER DIRECTIVE Health Care Decision (hx) 01/30/2022 AD WHITAKER DIRECTIVE Health Care Decision (hx) 01/30/2022 AD WHITAKER DIRECTIVE Health Care Decision (hx) 01/30/2022 AD WHITAKER DIRECTIVE Health Care Decision (hx) 01/30/2022 AD WHITAKER DIRECTIVE Health Care Decision (hx) 01/30/2022 AD WHITAKER DIRECTIVE Health Care Decision (hx) 01/30/2022 AD WHITAKER DIRECTIVE Health Care Decision (hx) 01/30/2022 AD WHITAKER DIRECTIVE Health Care Decision (hx) 01/26/2022 AD WHITAKER DIRECTIVE Health Care Decision (hx) 01/26/2022 AD WHITAKER DIRECTIVE Health Care Decision (hx) 01/26/2022 AD WHITAKER DIRECTIVE Health Care Decision (hx) 01/26/2022 AD WHITAKER DIRECTIVE Health Care Decision (hx) 01/26/2022 AD WHITAKER DIRECTIVE Health Care Decision (hx) 01/26/2022 AD WHITAKER DIRECTIVE Health Care Decision (hx) 01/26/2022 AD WHITAKER DIRECTIVE Health Care Decision (hx) 01/26/2022 AD WHITAKER DIRECTIVE Health Care Decision (hx) 01/26/2022 AD WHITAKER DIRECTIVE Health Care Decision (hx) 01/26/2022 AD WHITAKER DIRECTIVE Health Care Decision (hx) 01/26/2022 AD WHITAKER DIRECTIVE Health Care Decision (hx) 01/26/2022 AD WHITAKER DIRECTIVE Health Care Decision (hx) 01/26/2022 AD WHITAKER DIRECTIVE Health Care Decision (hx) 01/26/2022 AD WHITAKER DIRECTIVE Care Teams Marine Pilot Relationship Specialty Start Date End Date Vernell Lu NP [address] [place] [id number] PCP - General Nurse Practitioner 07/31/24
--- OUTSIDE RECORDS SUMMARY | 2025-05-21 00:01 | XMS_ITS | Encounter Summary ---
Author Organization [facility] Address [address] [place] [address] Care Team Providers Care E Learning Developer Name Role Phone Ref, Has No Pcp Or Primary Care Provider Unavail able Encounter Details Date Type Department Care Team (Late st Contact Info) Description 01/23/2024 Orders Only [facility] Nuclear Medicine [address] [place] [address] [phone] Hermila Alvarez MD [address] [place] [address] [phone] Social History Tobacco Use Types Packs/Day Years [...] on filedocumented in this encounter Care Teams E Learning Developer Relationship Specialty Start Date End Date Ref, Has No Pcp Or DO NOT EDIT THIS RECORD VIA PROVIDER ON THE FLY PCP - General Research Quality Assurance Specialist 02/16/22 documented as of this encounter
--- OUTSIDE RECORDS SUMMARY | 2025-05-21 00:01 | XMS_ITS | Clinical Summary ---
Author Organization [facility] Address [address] [place] [address] Care Team Providers Care Fly Finisher Name Role Phone Unavailable Primary Care Provider Unavailabl e Social History Tobacco Use Types Packs/Day Years Used Date Smoking Tobacco: Never Assessed Sex and Gender Information Value Date Recorded Sex Assigned at Not on file Legal Sex Male 1:51 PM EDT Gender Identity Not on file Sexual Orientation Not on file Plan of Treatment Health Maintenance Due Date Last Done Comments Hepatitis C Virus Screening 1965 HIV Screening 1980 DTaP/Tdap/Td Vaccines (1 - Tdap) 1986 Hepatitis B Vaccines (1 of 3 - 19+ 3-dose series) 05/1986 Pneumococcal Vaccines 50+ (1 of 1 - PCV) 2017 Zoster (Shingles) Vaccine (1 of 2) 2017 COVID-19 Vaccine (1 - season) 2025
--- OUTSIDE RECORDS SUMMARY | 2025-05-21 00:01 | XMS_ITS ---
Author Name [facility] Organization Unknown Encounters Encounter Type Encounter Reason Primary Diagnosis Location Date Ambulatory [facility] [place] 01/20/2025 Ambulatory [facility] [place] 01/20/2025 Ambulatory [facility] [place] 01/20/2025 Ambulatory [facility] [place] 01/20/2025 Ambulatory [facility] [place] 01/20/2025 Ambulatory [facility] [place] 01/20/2025
[2025-05-21 00:22] VITALS: BP 107/70; PULSE 77; PULSE 78; RESP 16; TEMP 36.4; O2SAT 95
[2025-05-21 05:12] VITALS: BP 97/61; PULSE 77; RESP 16; TEMP 36.8; O2SAT 94
--- NOTE | 2025-05-21 05:16 | PC.NURSE ---
aware of BP. no new orders.
[2025-05-21 06:28] VITALS: BP 97/61; PULSE 77; RESP 16; TEMP 36.8; O2SAT 94
== END 2025-05-21 06:37 | disposition home or self-care (01) ==
PROVIDERS: Emergency Provider Emergency Medicine; PCP Nurse Practitioner Primary Care
DX: F10.129 Alcohol abuse with intoxication, unspecified (principal)
CPT/HCPCS: 99284